=== PATIENT | female | born 1990 | race Caucasian/White ===

== ENCOUNTER 2017-01-13 18:23 | Emergency (ER) | payer SELFPAY ==
[~2017-01-13] VITALS: Ht 162.6 cm; Wt 61.2 kg
[2017-01-13] MEDS ORDERED: NS IV 1000 ML 1,000 ML IV STA (18:36)
[2017-01-13] MEDS ORDERED: FAMOTIDINE 20MG/2ML IV (PEPCID) IV STA (18:36)
[2017-01-13] MEDS ORDERED: KETOROLAC 30 MG/ML VIAL IVP STA (18:36)
[2017-01-13] MEDS ORDERED: ONDANSETRON 4 MG/2 ML (SDV) Z0FRAN IVP ONE (18:45)
[2017-01-13] MEDS ORDERED: HYOSCYAMINE 0.125 MG (LEVSIN) TAB SL ONE (18:45)
[2017-01-13 18:46] LABS: BASOPHILS % (AUTO) 0 % (0-10); EOSINOPHILS % (AUTO) 0 % (0-10); LYMPHOCYTES # (AUTO) 0.8 X 10^3 (1.0-4.0); LYMPHOCYTES % (AUTO) 9 % (12-44); MEAN CORPUSCULAR HEMOGLOBIN 31 PG (25-34); MEAN CORPUSCULAR HGB CONC 35 G/DL (32-36); MEAN CORPUSCULAR VOLUME 90 FL (80-99); MEAN PLATELET VOLUME 10.6 FL (7.4-10.4); MONOCYTES # (AUTO) 0.5 X 10^3 (0.0-1.0); MONOCYTES % (AUTO) 5 % (0-12); NEUTROPHILS # (AUTO) 8.1 X 10^3 (1.8-7.8); NEUTROPHILS % (AUTO) 86 % (42-75); PLATELET COUNT 203 10^3/uL (130-400); RED BLOOD COUNT 4.82 10^6/uL (4.35-5.85); RED CELL DISTRIBUTION WIDTH 12.2 % (10.0-14.5); WHITE BLOOD COUNT 9.5 10^3/uL (4.3-11.0)
--- NOTE | 2017-01-13 19:00 | ED GI ---
General Chief Complaint: Abdominal/GI Problems Stated Complaint: VOMITING,CHILLS Source of Information: Patient Exam Limitations: No Limitations History of Present Illness Time Seen By Provider: 18:32 Initial Comments Here with report of nausea, vomiting and diarrhea since 10 a.m. today. States that she has moderate abdominal cramping with diarrhea and this occurs with each by mouth intake of fluids. Noted that others in her family has similar illnesses this week. She had something similar 3 days ago but got a little better. Denies fever but does report chills. Complains of moderate epigastric burning after trying to take a sip of root beer. Denies blood in her vomit or stool. Timing/Duration: 12 Hours Severity/Quality: Moderate Location: Generalized Abdomen Modifying Factors: Worsens With Eating, Improves With Vomiting Associated Symptoms: No Back Pain, No Chest Pain, No Fever/Chills, Heartburn, Nausea/Vomiting, No Shortness of Air, No Weakness Allergies and Home Medications Allergies Coded Allergies: No Known Drug Allergies (Unverified , 01/13/17) Review of Systems Constitutional: see HPI EENTM: No Symptoms Reported Respiratory: No Symptoms Reported Cardiovascular: No Symptoms Reported Gastrointestinal: See HPI, Abdominal Pain, Diarrhea, Nausea, Vomiting Genitourinary: No Symptoms Reported Musculoskeletal: no symptoms reported Skin: no symptoms reported Psychiatric/Neurological: No Symptoms Reported All Other Systems Reviewed Negative Unless Noted: Yes Past Fenczzp-Aelrnd-Tbxozz Hx Patient Social History Alcohol Use: Occasionally Uses Recreational Drug Use: No Smoking Status: Never a Smoker Recent Foreign Travel: No Contact w/Someone Who Travel: No Surgeries HX Surgeries: Yes Surgeries: Appendectomy, Section, Orthopedic Respiratory Hx Respiratory Disorders: No Cardiovascular Hx Cardiac Disorders: No Neurological Hx Neurological Disorders: No Genitourinary Hx Genitourinary Disorders: No Gastrointestinal Hx Gastrointestinal Disorders: No Musculoskeletal Hx Musculoskeletal Disorders: No Cancer Hx Cancer: No Psychosocial Hx Psychiatric Problems: No Reviewed Nursing Assessment Reviewed/Agree w Nursing PMH: Yes Family Medical History Significant Family History: No Pertinent Family Hx Physical Exam Vital Signs VS - Last 72 Hours, by Label 01/13/17 18:28 Temp 98.2 Pulse 102 Resp 18 B/P (MAP) 113/87 Pulse Ox 97 O2 Delivery Room Air Capillary Refill : General Appearance: WD/WN, no apparent distress HEENT: PERRL/EOMI, pharynx normal Neck: full range of motion, supple Respiratory: lungs clear, normal breath sounds Cardiovascular: regular rate, rhythm, no murmur Peripheral Pulses: 2+ Dorsalis Pedis (R), 2+ Left Dors-Pedis (L), 2+ Radial Pulses (R), 2+ Radial Pulses (L) Gastrointestinal: non tender, soft Extremities: non-tender, normal inspection Back: normal inspection, no CVA tenderness, no vertebral tenderness Neurologic/Psychiatric: alert, oriented x 3 Skin: normal color, warm/dry Progress/Results/Core Measures Results/Orders Lab Results Laboratory Tests Test 01/13/17 18:39 01/13/17 19:21 Range/Units White Blood Count 9.5 4.3-11.0 10^3/uL Red Blood Count 4.82 4.35-5.85 10^6/uL Hemoglobin 15.0 11.5-16.0 G/DL Hematocrit 43 35-52 % Mean Corpuscular Volume 90 80-99 FL Mean Corpuscular Hemoglobin 31 25-34 PG Mean Corpuscular Hemoglobin Concent 35 32-36 G/DL Red Cell Distribution Width 12.2 10.0-14.5 % Platelet Count 203 130-400 10^3/uL Mean Platelet Volume 10.6 H 7.4-10.4 FL Neutrophils (%) (Auto) 86 H 42-75 % Lymphocytes (%) (Auto) 9 L 12-44 % Monocytes (%) (Auto) 5 0-12 % Eosinophils (%) (Auto) 0 0-10 % Basophils (%) (Auto) 0 0-10 % Neutrophils # (Auto) 8.1 H 1.8-7.8 X 10^3 Lymphocytes # (Auto) 0.8 L 1.0-4.0 X 10^3 Monocytes # (Auto) 0.5 0.0-1.0 X 10^3 Eosinophils # (Auto) 0.0 0.0-0.3 10^3/uL Basophils # (Auto) 0.0 0.0-0.1 10^3/uL Sodium Level 137 135-145 MMOL/L Potassium Level 3.9 3.6-5.0 MMOL/L Chloride Level 106 98-107 MMOL/L Carbon Dioxide Level 16 L 21-32 MMOL/L Anion Gap 15 H 5-14 MMOL/L Blood Urea Nitrogen 18 7-18 MG/DL Creatinine 0.72 0.60-1.30 MG/DL Estimat Glomerular Filtration Rate > 60 BUN/Creatinine Ratio 25 Glucose Level 98 70-105 MG/DL Calcium Level 8.9 8.5-10.1 MG/DL Total Bilirubin 1.4 H 0.1-1.0 MG/DL Aspartate Amino Transf (AST/SGOT) 18 5-34 U/L Alanine Aminotransferase (ALT/SGPT) 23 0-55 U/L Alkaline Phosphatase 64 40-136 U/L Total Protein 7.7 6.4-8.2 GM/DL Albumin 4.8 H 3.2-4.5 GM/DL Amylase Level 26 25-125 U/L Lipase 4 L 8-78 U/L Urine Color YELLOW Urine Clarity CLEAR Urine pH 5 5-9 Urine Specific [place] 1.020 1.016-1.022 Urine Protein 1+ H NEGATIVE Urine Glucose (UA) NEGATIVE NEGATIVE Urine Ketones 4+ H NEGATIVE Urine Nitrite NEGATIVE NEGATIVE Urine Bilirubin NEGATIVE NEGATIVE Urine Urobilinogen NORMAL NORMAL MG/DL Urine Leukocyte Esterase 1+ H NEGATIVE Urine RBC (Auto) 2+ H NEGATIVE Urine RBC NONE /HPF Urine WBC 10-25 H /HPF Urine Squamous Epithelial Cells 5-10 /HPF Urine Crystals NONE /LPF Urine Bacteria FEW H /HPF Urine Casts NONE /LPF Urine Mucus LARGE H /LPF Urine Culture Indicated YES My Orders Orders - ROJELIO SALINAS MD Ondansetron Injection (Zofran Injectio (01/13/17 18:45) Ns Iv 1000 Ml (Sodium Chloride 0.9%) (01/13/17 18:36) Famotidine Injection (Pepcid Injection) (01/13/17 18:36) Hyoscyamine Sl Tablet (Levsin Sl Tablet) (01/13/17 18:45) Saline Lock/Iv-Start (01/13/17 18:36) Ketorolac Injection (Toradol Injection) (01/13/17 18:36) Amylase (01/13/17 18:36) Cbc With Automated Diff (01/13/17 18:36) Comprehensive Metabolic Panel (01/13/17 18:36) Lipase (01/13/17 18:36) Urine Bedside (01/13/17 19:04) Ua Culture If Indicated (01/13/17 19:04) Urine Culture (01/13/17 19:21) Ns Iv 1000 Ml (Sodium Chloride 0.9%) (01/13/17 19:49) Medications Given in ED Current Medications Medications Dose Ordered Sig/[place] Route Start Time Stop Time Status Last Admin Dose Admin Hyoscyamine Sulfate 0.125 mg ONCE ONCE SL 01/13/17 18:45 01/13/17 18:46 DC 01/13/17 18:47 0.125 MG Ondansetron HCl 4 mg ONCE ONCE IVP 01/13/17 18:45 01/13/17 18:46 DC 01/13/17 18:48 4 MG Sodium Chloride 1,000 ml @ 0 mls/hr Q0M ONCE IV 01/13/17 19:49 01/13/17 19:50 DC 01/13/17 20:04 0 MLS/HR Vital Signs/I&O Vital Sign - Last 12Hours 01/13/17 18:28 Temp 98.2 Pulse 102 Resp 18 B/P (MAP) 113/87 Pulse Ox 97 O2 Delivery Room Air Progress Note : Progress Note Seen and evaluated. IV, labs, UA, normal saline 1 L bolus, Zofran 4 mg IV, Toradol 30 mg IV, Levsin 0.125 mg by mouth and Pepcid 20 mg IV ordered. Monitor patient. 2119: Second liter of IV fluid given the patient feeling much better. She states she is hungry would like to go home. Labs and UA reviewed with her. Discharged home with return precautions. Patient verbalize understanding instructions and agreement with plan. Departure Impression Impression: Primary Impression: Nausea and vomiting Qualified Codes: R11.2 - Nausea with vomiting, unspecified Additional Impressions: Dehydration Diarrhea Qualified Codes: R19.7 - Diarrhea, unspecified Disposition: 01 HOME, SELF-CARE Condition: Stable (I will order as patient's chart) Departure-Patient Inst. Decision time for Depature: 21:25 Referrals: NO,LOCAL PHYSICIAN (PCP/Family) Primary Care Physician Patient Instructions: Dehydration, Adult (DC), Diarrhea in Adolescents and Adults, Nausea and Vomiting, Adult (DC) Add. Discharge Instructions: All discharge instructions reviewed with patient and/or family. Voiced understanding. Clear liquid diet for the next 12-24 hours and then advance as tolerated. Follow-up with your DrKwaku in a few days for recheck. Return for worsening, fever , vomiting, weakness, breathing problems or other concerns as needed. You may take Pepcid 20 mg twice daily for the next 3-4 days and then as needed for stomach upset. Work/School Note: [employer] ROJELIO SALINAS MD Jan 13, 2017 19:00
[2017-01-13 19:14] LABS: ALANINE AMINOTRANSFERASE 23 U/L (0-55); ALBUMIN 4.8 GM/DL (3.2-4.5); AMYLASE 26 U/L (25-125); ANION GAP 15 MMOL/L (5-14); ASPARTATE AMINO TRANSFERASE 18 U/L (5-34); BILIRUBIN,TOTAL 1.4 MG/DL (0.1-1.0); BLOOD UREA NITROGEN 18 MG/DL (7-18); BUN/CREATININE RATIO 25; CALCIUM 8.9 MG/DL (8.5-10.1); CARBON DIOXIDE 16 MMOL/L (21-32); CHLORIDE 106 MMOL/L (98-107); CREATININE SERUM 0.72 MG/DL (0.60-1.30); GFR ESTIMATED > 60; GLUCOSE 98 MG/DL (70-105); LIPASE 4 U/L (8-78); POTASSIUM 3.9 MMOL/L (3.6-5.0); SODIUM 137 MMOL/L (135-145); TOTAL PROTEIN 7.7 GM/DL (6.4-8.2)
[2017-01-13 19:33] LABS: BILIRUBIN,URINE NEGATIVE (NEGATIVE); KETONES,URINE 4+ (NEGATIVE); LEUKOCYTE ESTERASE ,URINE 1+ (NEGATIVE); NITRITE,URINE NEGATIVE (NEGATIVE); PH,URINE 5 (5-9); PROTEIN,URINE 1+ (NEGATIVE); UROBILINOGEN,URINE NORMAL (NORMAL)
[2017-01-13] MEDS ORDERED: NS IV 1000 ML 1,000 ML IV ONE (19:49)
[2017-01-13] MEDS ORDERED: RX-ONDANSETRON 4 MG ODT (ZOFRAN) PPK #4 ONE (21:21)
[2017-01-13] MEDS ORDERED: RX-ONDANSETRON 4 MG ODT (ZOFRAN) PPK #4 PO STA (21:27)
[2017-01-13 21:40] VITALS: BP 103/65
== END 2017-01-13 21:38 | disposition home or self-care (01) ==
LOC: ER 18:27
DX: R11.2 Nausea with vomiting, unspecified (principal); R19.7 Diarrhea, unspecified; E86.0 Dehydration; Z90.49 Acquired absence of other specified parts of digestive tract
CPT/HCPCS: 36415; 80053; 81000; 82150; 83690; 85025; 87088; 96361; 96374; 96375

== ENCOUNTER → 2017-04-25 | Outpatient (CLI) | payer MEDICAID ==
--- NOTE | 2017-04-25 10:38 | Diagnostic Imaging Report ---
First trimester OB ultrasound. INDICATION: Vaginal bleeding. FINDINGS: There is a normal-appearing single intrauterine . An embryo is seen with cardiac activity at 113 beats per minute. The crown-rump length is at 6 weeks and zero days. BAILEE is 12/19/17. There is subchorionic hemorrhage measuring 1 x 1 x 0.3 CM along the left side the of the gestational sac. There is suggestion of a corpus luteum cyst measuring 2.2 CM in the right ovary. The left ovary appears unremarkable. IMPRESSION: Live single intrauterine . Tiny subchorionic hemorrhage. Dictated by: Dictated on workstation # [id number]
== END ==
LOC: RAD 09:12
PROVIDERS: ATTEND Family Medicine
DX: O20.0 Threatened abortion (principal); Z3A.00 Weeks of gestation of pregnancy not specified
CPT/HCPCS: 36415; 76801; 76817; 84702

== ENCOUNTER → 2017-08-21 | Outpatient (CLI) | payer MEDICAID ==
--- NOTE | 2017-08-21 18:06 | Diagnostic Imaging Report ---
INDICATION: survey. TECHNIQUE: Multiple real-time grayscale images were obtained over the gravid uterus. COMPARISON: 04/25/2017. FINDINGS: Single live intrauterine fetus is seen measuring at 23 weeks 5 days in size, this is about 6 days larger than expected from original dates. Fetus is in breech presentation at this time. The amniotic fluid appears qualitatively normal. Placenta is posterior and grade 2 with no evidence of previa. The heart rate was 156 beats per minute. Cervical length was 4.2 cm. survey including kidneys, bladder, stomach, brain and intracranial ventricles, four-chamber heart, three-vessel cord, spine, and cord insertion all appeared unremarkable. Biometrical measurements are as follows: Biparietal 5.59 cm, age 23 weeks 1 days. Head circumference 21.54 cm, age 23 weeks 5 days. Abdominal circumference 19.76 cm, age 24 weeks 3 days. Femur length 4.05 cm, age 23 weeks 1 days. Sonographic estimate age: 23 weeks 5 days. Sonographic estimated date of delivery: 12/13/2017. Estimated Weight: 629 gm (+/- 92 gm). LMP percentile: 86%. heart rate: 156 beats per minute. number: 1 of 1. IMPRESSION: Single live intrauterine fetus measuring 23 weeks 5 days in size, this is about 6 days larger than expected from original dates but may be within variation of late . Continued followup is suggested, as clinically warranted. The fetus is in breech presentation. survey was unremarkable. Dictated by: Dictated on workstation # [id number]
== END ==
LOC: RAD 15:39
PROVIDERS: ATTEND Family Medicine
DX: Z34.92 Encounter for supervision of normal pregnancy, unspecified, second trimester (principal); Z3A.23 23 weeks gestation of pregnancy
CPT/HCPCS: 76805

== ENCOUNTER 2017-10-01 19:42 | Outpatient (CLI) | payer SELFPAY ==
--- NOTE | 2017-10-03 09:56 | Physician Query-Final Dx ---
NICOLE HUMPHREYS 10/03/17 0956: Clinic Account Progress/Dx Physician Query: Please give diagnosis Date of Service Oct 01, 2017 at 19:42 RAYA JIMÉNEZ DO 10/04/17 1147: Clinic Account Progress/Dx DIAGNOSIS: Diagnosis 28 week GA Reactive NST - patient seen and evaluated in the ER NICOLE HUMPHREYS Oct 03, 2017 09:56 RAYA JIMÉNEZ DO Oct 04, 2017 11:47
== END 2017-10-01 19:50 | disposition designated cancer center or children's hospital (05) ==
LOC: WSo 19:42 → LDRP 19:42 → WSo 19:50
PROVIDERS: ATTEND Family Medicine
DX: O99.353 Diseases of the nervous system complicating pregnancy, third trimester (principal); R47.9 Unspecified speech disturbances; R20.2 Paresthesia of skin; Z3A.28 28 weeks gestation of pregnancy
CPT/HCPCS: 99212

== ENCOUNTER 2017-10-01 19:57 | Emergency (ER) | payer SELFPAY ==
[~2017-10-01] VITALS: Ht 162.6 cm; Wt 70.3 kg
--- OUTSIDE RECORDS SUMMARY | 2017-10-01 20:02 | XMS REPORT | Clinical Summary ---
Author Author [facility] Organization [facility] Address Unknown Phone Unavailable Care Team Providers Care Psychology Technician Name Role Phone Katarzyna Ahn RN Unavailable Unavailable Jermain Kunz MD Unavailable Jamia Colvin RN Unavailable Unavailable Nuria Chiu MD PCP Nuria Chiu MD 100 Source Comments Some departments are not documenting in the electronic medical record. If you do not see the information that you expected, contact Release of Information in the Health Information Management department at [phone] for further assistance in locating additional records.[facility] Allergies No Known Allergies Current Medications Prescription Sig. Disp. Refills Start End Date Status Date ibuprofen (MOTRIN) 600 mg Take 1 Tab by mouth every 30 Tab 0 10/10/19 Active tablet 6 hours as needed for 17 Pain. Take with food. Active Problems Problem Noted Date Encounter for insertion of intrauterine contraceptive device 04/28/2016 Overview: 04/26/2016: Mirena inserted today. Single, sexually active. Has a 3 yo son. Recent PAP was ok, but tested positive for chlamydia. Was treated. Partner treated as well. - POC URINE neg - Mirena insertec - Ordered CHLAM/NG PCR SWAB; Future; Expected date: 04/26/16 Screen for STD (sexually transmitted disease) 04/28/2016 Overview: 04/26/2016: Recent + test for chlaymdia. Pt and partner treated. Repeat ordered, since getting an IUD placed today. Immunizations Name Dates Previously Given Next Due FLU VACCINE >3YO 05/10/2011 Family History Medical History Relation Name Comments Alcohol abuse Father Alcohol abuse Maternal Grandfather Diabetes Maternal Grandfather Drug Abuse Maternal Grandfather Kidney Disease Maternal Grandfather Alcohol abuse Maternal Grandmother Diabetes Maternal Grandmother Heart Disease Maternal Grandmother High Cholesterol Maternal Grandmother Alcohol abuse Mother Cancer Paternal Grandmother Diabetes Paternal Grandmother Relation Name Status Comments Father Maternal Grandfather Maternal Grandmother Mother Paternal Grandmother Social History Tobacco Use Types Packs/Day Years Used Date Current Some Day Smoker 0.03 Smokeless Tobacco: Never Used Tobacco Cessation: Ready to Quit: Yes; Counseling Given: Yes Alcohol Use Drinks/Week oz/Week Comments Yes 0 Standard 0.0 drinks or equivalent Sex Assigned at Date Recorded Not on file Last Filed Vital Signs Vital Sign Reading Time Taken Blood Pressure 114/60 10/09/2016 12:46 PM CDT Pulse 85 06/10/2016 2:21 PM [employer] Temperature 36.8 C (98.3 F) 10/09/2016 11:40 AM CDT Respiratory Rate 16 06/10/2016 2:21 PM [employer] Oxygen Saturation 100% 10/09/2016 12:48 PM CDT Inhaled Oxygen - - Concentration Weight 64.4 kg (141 lb 14.4 oz) 06/10/2016 2:21 PM [employer] Height 162.6 cm (5' 4.02") 06/10/2016 2:21 PM [employer] Body Mass Index 24.34 06/10/2016 2:21 PM [employer] Plan of Treatment Health Maintenance Due Date Last Done Comments HPV VACCINES (1 of 3 - 08/29/2003 Female 3 Dose Series) PERTUSSIS VACCINE 08/29/2003 TETANUS VACCINE 2009 PHYSICAL (COMPREHENSIVE) 03/15/2017 03/15/2016, 08/25/2011 EXAM INFLUENZA VACCINE 03/26/2018 05/10/2011 CERVICAL CANCER SCREENING 03/15/2019 03/15/2016, 03/15/2016 HIV SCREENING Completed 03/16/2016, 08/25/2011 Results Not on filefrom Last 3 Months
[2017-10-01 20:15] LABS: BASOPHILS % (AUTO) 0 % (0-10); EOSINOPHILS # (AUTO) 0.4 10^3/uL (0.0-0.3); EOSINOPHILS % (AUTO) 4 % (0-10); HEMATOCRIT 37 % (35-52); HEMOGLOBIN 12.9 G/DL (11.5-16.0); LYMPHOCYTES # (AUTO) 2.4 X 10^3 (1.0-4.0); LYMPHOCYTES % (AUTO) 25 % (12-44); MEAN CORPUSCULAR HEMOGLOBIN 31 PG (25-34); MEAN CORPUSCULAR HGB CONC 35 G/DL (32-36); MEAN CORPUSCULAR VOLUME 90 FL (80-99); MEAN PLATELET VOLUME 10.5 FL (7.4-10.4); MONOCYTES # (AUTO) 0.7 X 10^3 (0.0-1.0); MONOCYTES % (AUTO) 8 % (0-12); NEUTROPHILS # (AUTO) 5.9 X 10^3 (1.8-7.8); NEUTROPHILS % (AUTO) 63 % (42-75); PLATELET COUNT 210 10^3/uL (130-400); RED BLOOD COUNT 4.11 10^6/uL (4.35-5.85); RED CELL DISTRIBUTION WIDTH 12.8 % (10.0-14.5); WHITE BLOOD COUNT 9.4 10^3/uL (4.3-11.0)
[2017-10-01 20:17] LABS: BILIRUBIN,URINE NEGATIVE (NEGATIVE); CLARITY,URINE CLEAR; COLOR,URINE YELLOW; GLUCOSE, URINE (UA) NEGATIVE (NEGATIVE); KETONES,URINE NEGATIVE (NEGATIVE); LEUKOCYTE ESTERASE ,URINE NEGATIVE (NEGATIVE); NITRITE,URINE NEGATIVE (NEGATIVE); PH,URINE 7 (5-9); PROTEIN,URINE NEGATIVE (NEGATIVE); UROBILINOGEN,URINE NORMAL (NORMAL)
[2017-10-01 20:20] LABS: PROTHROMBIN TIME PATIENT 12.9 SEC (12.2-14.7)
[2017-10-01 20:30] LABS: ALANINE AMINOTRANSFERASE 13 U/L (0-55); ALBUMIN 3.8 GM/DL (3.2-4.5); ALKALINE PHOSPHATASE 79 U/L (40-136); BILIRUBIN,TOTAL 0.4 MG/DL (0.1-1.0); BUN/CREATININE RATIO 7; CARBON DIOXIDE 21 MMOL/L (21-32); CHLORIDE 108 MMOL/L (98-107); CREATININE SERUM 0.59 MG/DL (0.60-1.30); GFR ESTIMATED > 60; GLUCOSE 94 MG/DL (70-105); MAGNESIUM 1.8 MG/DL (1.8-2.4); POTASSIUM 3.7 MMOL/L (3.6-5.0); SODIUM 140 MMOL/L (135-145); TOTAL PROTEIN 6.5 GM/DL (6.4-8.2)
[2017-10-01 20:31] LABS: BACTERIA,URINE NEGATIVE /HPF; SQUAMOUS EPITHELIAL CELL,UR 0-2 /HPF; WBC,URINE 0-2 /HPF
[2017-10-01 20:37] LABS: AMPHETAMINE SCREEN, URINE NEGATIVE (NEGATIVE); BARBITURATE SCREEN URINE NEGATIVE (NEGATIVE); BENZODIAZEPINES SCREEN URINE NEGATIVE (NEGATIVE); CANNABINOID SCREEN, URINE NEGATIVE (NEGATIVE); COCAINE SCREEN URINE NEGATIVE (NEGATIVE); METHADONE STAT NEGATIVE (NEGATIVE); METHAMPHETAMINE SCREEN URINE S NEGATIVE (NEGATIVE); OPIATE SCREEN URINE NEGATIVE (NEGATIVE); OXYCODONE STAT NEGATIVE (NEGATIVE); PROPOXYPHENE STAT NEGATIVE (NEGATIVE); TRICYCLIC ANTIDEPRESSANTS SCRE NEGATIVE (NEGATIVE)
--- NOTE | 2017-10-01 20:49 | Diagnostic Imaging Report ---
CT HEAD WO-R/O STROKE Technique: Unenhanced CT imaging of the head was performed. Indication: Right-sided numbness and tingling. Comparison: None available. Findings: No hyperdense hemorrhage or space-occupying mass. No hydrocephalus or midline shift. No evidence of acute large territorial infarct by CT. Basilar cisterns are patent. Paranasal sinuses and mastoid air cells are clear. Orbits are unremarkable. Impression: 1. No acute intracranial hemorrhage or evidence of acute territorial infarct. Dictated by: Dictated on workstation # [id number]
[2017-10-01 20:50] LABS: TSH (THYROID ANALYZER) 1.84 UIU/ML (0.35-4.94)
--- NOTE | 2017-10-01 21:18 | ED General ---
General Chief Complaint: -Female Stated Complaint: RIGHT SIDE WEAKNESS/CONFUSION 31 WKS PRE Nursing Triage Note: Pt. presented to the ER from the OB unit with complaints of hypertension and neurological changes. Upon arrival to the department the patient was A&O x 3. Pt. advises when her symptoms initially began that she experienced right leg, right fingers, tongue and right sided facial numbness. She advises numbness and tingling has since subsided. Nursing Sepsis Screen: No Definite Risk Allergies and Home Medications Allergies Coded Allergies: No Known Drug Allergies (Unverified , 01/13/17) Review of Systems Expected Date of Delivery: Dec 21, 2017 Past Vscjfbk-Xgguwy-Rlqmht Hx Patient Social History Alcohol Use: Denies Use Recreational Drug Use: No Smoking Status: Never a Smoker Recent Foreign Travel: No Contact w/Someone Who Travel: No Recent Infectious Disease Expo: No Recent Hopitalizations: No Physical Abuse: No Sexual Abuse: No Seasonal Allergies Seasonal Allergies: No Past Medical History Surgeries: Yes Appendectomy, Section, Orthopedic Respiratory: No Cardiac: No Neurological: No : Yes (28 wks) Expected Date of Delivery: Dec 21, 2017 Last Menstrual Period: Mar 16, 2017 Hx : 2 Hx Para: 1 Hx Total # of Abortions (Sp): 1 Genitourinary: No Gastrointestinal: No Musculoskeletal: No Endocrine: No HEENT: No Cancer: No Psychosocial: No Nursing Suicide Risk Score: 0 Family Medical History No Pertinent Family Hx Physical Exam Vital Signs Vital Signs - First Documented 10/01/17 20:10 Temp 98.7 Pulse 79 Resp 14 B/P (MAP) 103/64 (77) Pulse Ox 98 O2 Delivery Room Air Capillary Refill : Less Than 3 Seconds Progress/Results/Core Measures Suspected Sepsis Recent Fever Within 48 Hours: No Infection Criteria Present: None New/Unexplained Altered Menta: No Sepsis Screen: No Definite Risk Sepsis Diagnosis: SIRS Temperature:98.7 Pulse: 79 Respiratory Rate: 14 Laboratory Tests 10/01/17 19:59: White Blood Count 9.4 Blood Pressure 103 /64 Mean: 77 Laboratory Tests 10/01/17 19:59: Creatinine 0.59L, INR Comment 1.0, Platelet Count 210, Total Bilirubin 0.4 Results/Orders Lab Results Laboratory Tests Test 10/01/17 19:59 10/01/17 20:13 Range/Units White Blood Count 9.4 4.3-11.0 10^3/uL Red Blood Count 4.11 L 4.35-5.85 10^6/uL Hemoglobin 12.9 11.5-16.0 G/DL Hematocrit 37 35-52 % Mean Corpuscular Volume 90 80-99 FL Mean Corpuscular Hemoglobin 31 25-34 PG Mean Corpuscular Hemoglobin Concent 35 32-36 G/DL Red Cell Distribution Width 12.8 10.0-14.5 % Platelet Count 210 130-400 10^3/uL Mean Platelet Volume 10.5 H 7.4-10.4 FL Neutrophils (%) (Auto) 63 42-75 % Lymphocytes (%) (Auto) 25 12-44 % Monocytes (%) (Auto) 8 0-12 % Eosinophils (%) (Auto) 4 0-10 % Basophils (%) (Auto) 0 0-10 % Neutrophils # (Auto) 5.9 1.8-7.8 X 10^3 Lymphocytes # (Auto) 2.4 1.0-4.0 X 10^3 Monocytes # (Auto) 0.7 0.0-1.0 X 10^3 Eosinophils # (Auto) 0.4 H 0.0-0.3 10^3/uL Basophils # (Auto) 0.0 0.0-0.1 10^3/uL Prothrombin Time 12.9 12.2-14.7 SEC INR Comment 1.0 0.8-1.4 Activated Partial Thromboplast Time 25 24-35 SEC Sodium Level 140 135-145 MMOL/L Potassium Level 3.7 3.6-5.0 MMOL/L Chloride Level 108 H 98-107 MMOL/L Carbon Dioxide Level 21 21-32 MMOL/L Anion Gap 11 5-14 MMOL/L Blood Urea Nitrogen 4 L 7-18 MG/DL Creatinine 0.59 L 0.60-1.30 MG/DL Estimat Glomerular Filtration Rate > 60 BUN/Creatinine Ratio 7 Glucose Level 94 70-105 MG/DL Calcium Level 9.0 8.5-10.1 MG/DL Magnesium Level 1.8 1.8-2.4 MG/DL Total Bilirubin 0.4 0.1-1.0 MG/DL Aspartate Amino Transf (AST/SGOT) 16 5-34 U/L Alanine Aminotransferase (ALT/SGPT) 13 0-55 U/L Alkaline Phosphatase 79 40-136 U/L Troponin I < 0.30 <0.30 NG/ML Total Protein 6.5 6.4-8.2 GM/DL Albumin 3.8 3.2-4.5 GM/DL TSH [place] Testing 1.84 0.35-4.94 UIU/ML Serum Alcohol < 10 <10 MG/DL Urine Color YELLOW Urine Clarity CLEAR Urine pH 7 5-9 Urine Specific [place] 1.005 L 1.016-1.022 Urine Protein NEGATIVE NEGATIVE Urine Glucose (UA) NEGATIVE NEGATIVE Urine Ketones NEGATIVE NEGATIVE Urine Nitrite NEGATIVE NEGATIVE Urine Bilirubin NEGATIVE NEGATIVE Urine Urobilinogen NORMAL NORMAL MG/DL Urine Leukocyte Esterase NEGATIVE NEGATIVE Urine RBC (Auto) NEGATIVE NEGATIVE Urine RBC NONE /HPF Urine WBC 0-2 /HPF Urine Squamous Epithelial Cells 0-2 /HPF Urine Renal Epithelial Cells NONE /HPF Urine Crystals NONE /LPF Urine Bacteria NEGATIVE /HPF Urine Casts NONE /LPF Urine Mucus NEGATIVE /LPF Urine Culture Indicated NO Urine Opiates Screen NEGATIVE NEGATIVE Urine Oxycodone Screen NEGATIVE NEGATIVE Urine Methadone Screen NEGATIVE NEGATIVE Urine Propoxyphene Screen NEGATIVE NEGATIVE Urine Barbiturates Screen NEGATIVE NEGATIVE Ur Tricyclic Antidepressants Screen NEGATIVE NEGATIVE Urine Phencyclidine Screen NEGATIVE NEGATIVE Urine Amphetamines Screen NEGATIVE NEGATIVE Urine Methamphetamines Screen NEGATIVE NEGATIVE Urine Benzodiazepines Screen NEGATIVE NEGATIVE Urine Cocaine Screen NEGATIVE NEGATIVE Urine Cannabinoids Screen NEGATIVE NEGATIVE My Orders Orders - JORGE MEZA DO Saline Lock/Iv-Start (10/01/17 20:06) Ekg Tracing (10/01/17 20:06) Monitor-Rhythm Ecg Trace Only (10/01/17 20:06) Ct Head Wo-R/O Stroke (10/01/17 20:06) Alcohol (10/01/17 20:06) Cbc With Automated Diff (10/01/17 20:06) Comprehensive Metabolic Panel (10/01/17 20:06) Drug Screen Stat (Urine) (10/01/17 20:06) Magnesium (10/01/17 20:06) Protime With Inr (10/01/17 20:06) Partial Thromboplastin Time (10/01/17 20:06) Thyroid Analyzer (10/01/17 20:06) Troponin I (10/01/17 20:06) Ua Culture If Indicated (10/01/17 20:06) Monitor (10/01/17 20:06) Vital Signs/I&O 10/01/17 20:10 Temp 98.7 Pulse 79 Resp 14 B/P (MAP) 103/64 (77) Pulse Ox 98 O2 Delivery Room Air Capillary Refill : Less Than 3 Seconds Blood Pressure Mean: 77 Departure Impression Primary Impression: TRANSIENT PARESTHESIAS Additional Impressions: Transient speech disturbance 26 weeks gestation of Disposition: HOME, SELF-CARE Condition: Improved Departure-Patient Inst. Referrals: DAVID GUIDO MD (PCP/Family) Primary Care Physician Patient Instructions: Paresthesias (DC) Add. Discharge Instructions: HOME, REST EATING/DRINKING USUAL FOLLOW UP WITH YOUR OB DR. IN 1-2 DAYS FOR FURTHER CARE RETURN TO ER IF SYMPTOMS WORSEN All discharge instructions reviewed with patient and/or family. Voiced understanding. JORGE MEZA DO Oct 01, 2017 21:18
[2017-10-01 21:59] VITALS: BP 94/67
== END 2017-10-01 21:45 | disposition home or self-care (01) ==
LOC: EDUNIT# 19:57 → ER 19:58
DX: O99.353 Diseases of the nervous system complicating pregnancy, third trimester (principal); R47.9 Unspecified speech disturbances; R20.2 Paresthesia of skin; Z3A.31 31 weeks gestation of pregnancy; Z90.49 Acquired absence of other specified parts of digestive tract; Z87.59 Personal history of other complications of pregnancy, childbirth and the puerperium
CPT/HCPCS: 36415; 70450; 80053; 80306; 80320; 81000; 83735; 84443; 84484; 85025; 85610; 85730; 93005; 93041

== ENCOUNTER 2017-11-30 10:02 | Inpatient (IN) | payer SELFPAY ==
[~2017-11-30] VITALS: Ht 162.6 cm; Wt 76.7 kg
[2017-11-30 10:10] VITALS: BP 128/70
[2017-11-30] MEDS ORDERED: FAMOTIDINE 20MG/2ML IV (PEPCID) IV ONE (13:00)
[2017-11-30] MEDS ORDERED: CITRIC ACID/SOB CIT (BICITRA) 30 ML UDC PO ONE (13:00)
[2017-11-30] MEDS ORDERED: ceFAZolin 2 GM IV Premixed 50 ML IV ONE (13:00)
[2017-11-30] MEDS ORDERED: METOCLOPRAMIDE INJ 10 MG/2 ML (REGLAN) IV ONE (13:00)
[2017-11-30] MEDS ORDERED: raNItidine INJECTION 50 MG in NS (IVPB) 50 ML IV ONE (13:00)
--- NOTE | 2017-11-30 13:01 | History & Physical-OB/GYN ---
History of Present Illness History of Present Illness Reason for visit/HPI spotting in third trimester of (37 + weeks) Margaux regularly Large deceleration (good recovery) Previous section Date of Admission 11/30/17 Date Seen by Provider: Nov 30, 2017 Time Seen by Provider: 13:10 I consulted on this patient on 11/30/17 12:56 Attending Physician Miranda Cox MD Admitting Physician Miranda Cox MD Consult Allergies and Home Medications Allergies Coded Allergies: No Known Drug Allergies (Unverified , 01/13/17) Patient Home Medication List Home Medication List Reviewed: Yes Past Cpsavkg-Cqqadv-Gxttlh Hx Patient Social History Smoking Status: Never a Smoker Type Used: Cigarettes Physical Abuse Screen: No Sexual Abuse: No Recent Foreign Travel: No Contact w/other who traveled: No Recent Hopitalizations: No Recent Infectious Disease Expo: No Seasonal Allergies Seasonal Allergies: No Surgeries Yes Appendectomy, Section, Orthopedic, Tonsillectomy Respiratory No Cardiovascular No Neurological No Reproductive System Expected Date of Delivery: Dec 19, 2017 Hx : 2 Hx Para: 1 Hx Reproductive Disorders: No Genitourinary No Gastrointestinal No Musculoskeletal No Endocrine History of Endocrine Disorders: No HEENT History of HEENT Disorders: No Cancer No Psychosocial History of Psychiatric Problem: Yes Behavioral Health Disorders: Anxiety Family Medical History Significant Family History: No Pertinent Family Hx Constitutional: no symptoms reported Physical Exam Physical Exam Vital Signs Capillary Refill : Laboratory Tests Test 11/30/17 13:32 Range/Units White Blood Count 11.7 H 4.3-11.0 10^3/uL Red Blood Count 4.39 4.35-5.85 10^6/uL Hemoglobin 13.3 11.5-16.0 G/DL Hematocrit 39 35-52 % Mean Corpuscular Volume 88 80-99 FL Mean Corpuscular Hemoglobin 30 25-34 PG Mean Corpuscular Hemoglobin Concent 35 32-36 G/DL Red Cell Distribution Width 13.5 10.0-14.5 % Platelet Count 206 130-400 10^3/uL Mean Platelet Volume 11.8 H 7.4-10.4 FL Neutrophils (%) (Auto) 78 H 42-75 % Lymphocytes (%) (Auto) 16 12-44 % Monocytes (%) (Auto) 6 0-12 % Eosinophils (%) (Auto) 1 0-10 % Basophils (%) (Auto) 0 0-10 % Neutrophils # (Auto) 9.1 H 1.8-7.8 X 10^3 Lymphocytes # (Auto) 1.9 1.0-4.0 X 10^3 Monocytes # (Auto) 0.7 0.0-1.0 X 10^3 Eosinophils # (Auto) 0.1 0.0-0.3 10^3/uL Basophils # (Auto) 0.0 0.0-0.1 10^3/uL Labs See RN notes for vitals Respiratory: Lungs Clear, Normal Breath Sounds Cardiovascular: Regular Rate, Rhythm Abdominal: normal bowel sounds, non tender Assessment/Plan Assessment and Plan 27 year old at 37 weeks with history of previous section in labor Plan repeat section at this time Risk infection, injury to bowel bladder ureter, bleeding with risk of transfusion. Ancef 2 gm and SCDs prophylactically. Consents signed. [facility]. Admission Diagnosis Admission Status: Inpatient Order (span 2 midnights) Reason for Inpatient Admission: surgery CELIO ORTEGA DO Nov 30, 2017 13:01
--- OUTSIDE RECORDS SUMMARY | 2017-11-30 13:31 | XMS REPORT ---
Author Author DAVID GUIDO Organization [facility] Address [address] [place] [address] Care Team Providers Care Hardware Designer Name Role Phone DAVID GUIDO Unavailable PROBLEMS Type Condition ICD9-CM Code VOX27-JW Code Onset Dates Condition Status SNOMED Code Problem Previous section complicating O34.219 Active 345909960 Problem Anxiety F41.9 Active 88167858 Problem Substance abuse F19.10 Active 75012168 ALLERGIES No Known Allergies ENCOUNTERS Encounter Location Date Diagnosis [facility] [address] [address] Sep, [facility] [id number] [place] [address] 47298- 7927 Sep, [facility] [id number] [place] [address] 57805 -5998 Aug, Sore throat J02.9 and Acute nasopharyngitis J00 [facility] [id number] [place] [address] 53436- 1846 13 Aug, 2017 Second trimester Z34.92 ; Previous section complicating O34.219 and 24 weeks gestation of Z3A.24 [facility] [id number] [place] [address] 59928- 5458 07 Jul, 2017 First trimester Z34.90 ; 19 weeks gestation of Z3A.19 and History of section Z98.891 [place] [address] [address]- 7299 10 Jun, 2017 Second trimester Z34.92 and 15 weeks gestation of Z3A.15 [place] [address] 61516- 7916 Jun, [facility] [address] [place] [address] 68567- 7241 May, First trimester Z34.90 and 11 weeks gestation of Z3A.11 [facility] [id number] [place] [address] 52884- 6409 14 Apr, 2017 [facility] [id number] [place] [address] 04135- 0729 Apr, Normal in multigravida Z34.80 ; First trimester Z34.90 ; UTI (urinary tract infection) in in first trimester O23.41 ; 7 weeks gestation of Z3A.01 and Previous section complicating O34.219 [place] [id number] [place] [address] 28954- 8672 Apr, [place] [address] 8[address]- 3437 Mar, Threatened miscarriage in early O20.0 [place] [id number] [place] [address] 25492- 5769 Mar, Anxiety F41.9 and Substance abuse F19.10 [facility] [id number] [place] [address] 81358 -0958 Mar, Dysuria R30.0 and Vaginal candidiasis B37.3 [facility] [id number] [place] [address] 38313- 3931 Mar, [facility] [id number] [place] [address] 93706- 5169 Mar, [facility] [address] 64068- 2860 Mar, Encounter for test Z32.00 [facility] [id number] [place] [address] 77094- 5377 Mar, [facility] [address] 42676- 4177 Mar, Anxiety F41.9 and Substance abuse F19.10 [facility] [address] [place] [address] 28 Feb, 2017 Encounter for examination and observation for unspecified reason Z04.9 [facility] [address] [place] [address] Feb, [facility] [address] [place] [address] 33869- 5647 Feb, [place] [id number] [place] [address] 46549- 5276 14 Feb, 2017 Anxiety F41.9 and Substance abuse F19.10 [place] [id number] [place] [address] 42444- 3875 Jan, Left breast mass N63 ; Encounter for IUD removal Z30.432 and control counseling Z30.09 [place] [address] [place] [address] 40385- 3213 Jan, IMMUNIZATIONS No Known Immunizations SOCIAL HISTORY Never Assessed REASON FOR VISIT [facility] Updated PLAN OF CARE VITAL SIGNS MEDICATIONS Medication Instructions Dosage Frequency Start Date End Date Duration Status Mirena (52 MG) 20 MCG/24HR Active RESULTS No Results PROCEDURES No Known procedures INSTRUCTIONS MEDICATIONS ADMINISTERED No Known Medications MEDICAL (GENERAL) HISTORY Type Description Date Surgical History section 2012 Surgical History orthopedic surgery-right hand ring finger Surgical History appendectomy Hospitalization History childbirth only
--- OUTSIDE RECORDS SUMMARY | 2017-11-30 13:31 | XMS REPORT | Clinical Summary ---
Author Author [facility] Organization [facility] Address Unknown Phone Unavailable Care Team Providers Care Electronics Technician Name Role Phone Katarzyna Ahn RN Unavailable Unavailable Jermain Kunz MD Unavailable Jamia Colvin RN Unavailable Unavailable Nuria Chiu MD PCP Nuria Chiu MD 100 Source Comments Some departments are not documenting in the electronic medical record. If you do not see the information that you expected, contact Release of Information in the Health Information Management department at [phone] for further assistance in locating additional records.[facility] Allergies No Known Allergies Current Medications Prescription [...] PM CDT Pulse 85 06/10/2016 2:21 PM [employer] Temperature 36.8 C (98.3 F) 10/09/2016 11:40 AM CDT Respiratory Rate 16 06/10/2016 2:21 PM [employer] Oxygen Saturation 100% 10/09/2016 12:48 PM CDT Inhaled Oxygen - - Concentration Weight 64.4 kg (141 lb 14.4 oz) 06/10/2016 2:21 PM [employer] Height 162.6 cm (5' 4.02") 06/10/2016 2:21 PM [employer] Body Mass Index 24.34 06/10/2016 2:21 PM [employer] Plan of Treatment Health Maintenance Due Date Last Done Comments HPV VACCINES (1 of 3 - 08/29/2003 Female 3 Dose Series) PERTUSSIS VACCINE 08/29/2003 TETANUS VACCINE 2009 PHYSICAL (COMPREHENSIVE) 03/15/2017 03/15/2016, 08/25/2011 EXAM INFLUENZA VACCINE 03/26/2018 05/10/2011 CERVICAL CANCER SCREENING 03/15/2019 03/15/2016, 03/15/2016 HIV SCREENING Completed 03/16/2016, 08/25/2011 Results Not on filefrom Last 3 Months
--- OUTSIDE RECORDS SUMMARY | 2017-11-30 13:32 | XMS REPORT ---
Author Author DAVID GUIDO Organization [facility] Address [address] [place] [address] Care Team Providers Care Documentation Improvement Specialist Name Role Phone DAVID GUIDO Unavailable PROBLEMS Type Condition ICD9-CM Code OGK51-MH Code Onset Dates Condition Status SNOMED Code Problem Previous section complicating O34.219 Active 640616001 Problem Anxiety F41.9 Active 86833888 Problem Substance abuse F19.10 Active 50281148 ALLERGIES No Information ENCOUNTERS Encounter Location Date Diagnosis [facility] [address] [address] Nov, [facility] [address] 59661- 8739 Nov, [facility] [address] 0[address]- 7584 Nov, [facility] [address] 47107- 0969 October, [facility] [id number] [place] [address] 83035- 7234 October, Third trimester Z34.93 ; 33 weeks gestation of Z3A.33 and Previous section complicating O34.219 [facility] [id number] [place] [address] 24549- 9214 03 Oct, 2017 Third trimester Z34.93 ; 32 weeks gestation of Z3A.32 ; Previous section complicating O34.219 and Encounter for immunization Z23 [facility] [id number] [place] [address] 86249- 6189 Sep, [facility] [address] 86300- 4056 10 Sep, 2017 Third trimester Z34.93 and 28 weeks gestation of Z3A.28 [place] [address] [place] [address] 86961- 8302 02 Sep, 2017 [facility] [address] [place] [address] 42646 -5946 19 Aug, 2017 Sore throat J02.9 and Acute nasopharyngitis J00 [place] [id number] [place] [address] 24146- 2133 13 Aug, 2017 Second trimester Z34.92 ; Previous section complicating O34.219 and 24 weeks gestation of Z3A.24 [place] [id number] [place] [address] 12547- 8762 07 Jul, 2017 First trimester Z34.90 ; 19 weeks gestation of Z3A.19 and History of section Z98.891 [place] [id number] [place] [address] 23590- 3199 10 Jun, 2017 Second trimester Z34.92 and 15 weeks gestation of Z3A.15 [place] [id number] [place] [address] 86353- 5453 09 Jun, 2017 [place] [id number] [place] [address] 32339- 7415 13 May, 2017 First trimester Z34.90 and 11 weeks gestation of Z3A.11 [place] [address] [place] [address] 87868- 0223 14 Apr, 2017 [place] [address] [place] [address] 28478- 5985 14 Apr, 2017 Normal in multigravida Z34.80 ; First trimester Z34.90 ; UTI (urinary tract infection) in in first trimester O23.41 ; 7 weeks gestation of Z3A.01 and Previous section complicating O34.219 [place] [id number] [place] [address] 55869- 5722 Apr, [facility] [id number] [place] [address] 20499- 5013 Mar, Threatened miscarriage in early O20.0 [facility] [address] 28920- 5334 Mar, Anxiety F41.9 and Substance abuse F19.10 [facility] [address] 0[address] -9037 Mar, Dysuria R30.0 and Vaginal candidiasis B37.3 [facility] [address] 72188- 0773 Mar, [facility] [address] 21075- 4671 Mar, [facility] [address] 43715- 2538 Mar, Encounter for test Z32.00 [facility] [address] 58299- 6416 Mar, [facility] [address] 40386- 0327 Mar, Anxiety F41.9 and Substance abuse F19.10 [facility] [address] [place] [address] Feb, Encounter for examination and observation for unspecified reason Z04.9 [facility] [address] [place] [address] Feb, [facility] [id number] [place] [address] 24487- 0324 Feb, [facility] [address] 37759- 8522 Feb, Anxiety F41.9 and Substance abuse F19.10 [facility] [address] 23145- 8598 Jan, Left breast mass N63 ; Encounter for IUD removal Z30.432 and control counseling Z30.09 [facility] [address] [facility] [id number] [address] Jan, IMMUNIZATIONS No Known Immunizations SOCIAL HISTORY Never Assessed REASON FOR VISIT Requests return call PLAN OF CARE VITAL SIGNS MEDICATIONS Unknown Medications RESULTS No Results PROCEDURES No Known procedures INSTRUCTIONS MEDICATIONS ADMINISTERED No Known Medications MEDICAL (GENERAL) HISTORY Type Description Date Surgical History section 2012 Surgical History orthopedic surgery-right hand ring finger Surgical History appendectomy Hospitalization History childbirth only
--- OUTSIDE RECORDS SUMMARY | 2017-11-30 13:32 | XMS REPORT ---
Author Author ALEJANDRAREANNA BUSTOS [facility] Address [address] [place] [address] Care Team Providers Care Waistline Joiner Overlock Name Role Phone REANNA ROBERTS Unavailable PROBLEMS Type Condition ICD9-CM Code TEN91-JA Code Onset Dates Condition Status SNOMED Code Problem Previous section complicating O34.219 Active 318046415 Problem Anxiety F41.9 Active 36728733 Problem Substance abuse F19.10 Active 15491844 ALLERGIES No Information ENCOUNTERS Encounter Location Date Diagnosis [place] [address] 6[address] Nov, [facility] [address] 45046- 0573 Nov, [facility] [address] 79663- 5344 Nov, [facility] [address] 27247- 0041 October, [facility] [id number] [place] [address] 51843- 1947 October, [facility] [address] 50484- 8219 October, Third trimester Z34.93 and Encounter for immunization Z23 [facility] [address] [address]- [address] Sep, [place] [address] 03778- 4408 Sep, Third trimester Z34.93 and 28 weeks gestation of Z3A.28 [place] [address] 6[address]31- 4108 Sep, [facility] [address] [address] 19 Aug, 2017 Sore throat J02.9 and Acute nasopharyngitis J00 [facility] [address] [address]- [address] 13 Aug, 2017 Second trimester Z34.92 ; Previous section complicating O34.219 and 24 weeks gestation of Z3A.24 [facility] [address] [address]- 6762 07 Jul, 2017 First trimester Z34.90 ; 19 weeks gestation of Z3A.19 and History of section Z98.891 [facility] [address] [address]- 4676 10 Jun, 2017 Second trimester Z34.92 and 15 weeks gestation of Z3A.15 [place] [id number] [place] [address] 27348- 7596 09 Jun, 2017 [place] [id number] [place] [address] 44056- 2998 13 May, 2017 First trimester Z34.90 and 11 weeks gestation of Z3A.11 [facility] [address] [address]- 6585 14 Apr, 2017 [place] [address] [place] [address] 07288- 3662 14 Apr, 2017 Normal in multigravida Z34.80 ; First trimester Z34.90 ; UTI (urinary tract infection) in in first trimester O23.41 ; 7 weeks gestation of Z3A.01 and Previous section complicating O34.219 [facility] [address] [address]- [address] 02 Apr, 2017 [facility] [address] [address]- 1[address] Mar, Threatened miscarriage in early O20.0 [facility] [id number] [place] [address] 68597- 4249 Mar, Anxiety F41.9 and Substance abuse F19.10 [facility] [id number] [place] [address] 06112 -5536 Mar, Dysuria R30.0 and Vaginal candidiasis B37.3 [facility] [address] 21029- 7177 Mar, [facility] [address] 34063- 2598 Mar, [facility] [address] 16351- 3849 Mar, Encounter for test Z32.00 [facility] [address] 46922- 8325 Mar, [facility] [address] 33198- 2201 Mar, Anxiety F41.9 and Substance abuse F19.10 [facility] [address] [place] [address] Feb, Encounter for examination and observation for unspecified reason Z04.9 [facility] [address] [place] [address] Feb, [facility] [id number] [place] [address] 18034- 7451 Feb, [facility] [address] 56125- 9341 Feb, Anxiety F41.9 and Substance abuse F19.10 [facility] [address] 85543- 6486 Jan, Left breast mass N63 ; Encounter for IUD removal Z30.432 and control counseling Z30.09 [facility] [id number] [place] [address] 52962- 7768 Jan, IMMUNIZATIONS No Known Immunizations SOCIAL HISTORY Never Assessed REASON FOR VISIT FORMAL Assessment PLAN OF CARE VITAL SIGNS MEDICATIONS Unknown Medications RESULTS No Results PROCEDURES Procedure Date Ordered Result Body Site ALCOHOL AND/OR DRUG ASSESSMENT Mar 23, 2017 INSTRUCTIONS MEDICATIONS ADMINISTERED No Known Medications MEDICAL (GENERAL) HISTORY Type Description Date Surgical History section 2012 Surgical History orthopedic surgery-right hand ring finger Surgical History appendectomy Hospitalization History childbirth only
--- OUTSIDE RECORDS SUMMARY | 2017-11-30 13:32 | XMS REPORT ---
Author Author JEREMY ASHLEY [facility] Address [address] [place] [address] Care Team Providers Care Medical Services Coordinator Name Role Phone JEREMYNAOMI BARRONHANY Unavailable PROBLEMS Type Condition ICD9-CM Code KCW42-MM Code Onset Dates Condition Status SNOMED Code Problem Previous section complicating O34.219 Active 047668445 Problem Anxiety F41.9 Active 04416387 Problem Substance abuse F19.10 Active 88628016 ALLERGIES No Information ENCOUNTERS Encounter Location Date Diagnosis [place] [id number] [place] [address] 62400- 8046 Nov, [facility] [id number] [place] [address] 92003- 9391 Nov, [facility] [id number] [place] [address] 43626- 7158 Nov, [facility] [id number] [place] [address] 52221- 3413 October, [facility] [id number] [place] [address] 13898- 5087 October, Third trimester Z34.93 ; 33 weeks gestation of Z3A.33 and Previous section complicating O34.219 [facility] [id number] [place] [address] 55580- 2205 03 Oct, 2017 Third trimester Z34.93 ; 32 weeks gestation of Z3A.32 ; Previous section complicating O34.219 and Encounter for immunization Z23 [facility] [id number] [place] [address] 73814- 9304 Sep, [facility] [id number] [place] [address] 56784- 7609 10 Sep, 2017 Third trimester Z34.93 and 28 weeks gestation of Z3A.28 [place] [address] [place] [address] 91907- 1863 02 Sep, 2017 [facility] [address] [place] [address] 54372 -2286 19 Aug, 2017 Sore throat J02.9 and Acute nasopharyngitis J00 [place] [id number] [place] [address] 64520- 8029 13 Aug, 2017 Second trimester Z34.92 ; Previous section complicating O34.219 and 24 weeks gestation of Z3A.24 [place] [id number] [place] [address] 31005- 9736 07 Jul, 2017 First trimester Z34.90 ; 19 weeks gestation of Z3A.19 and History of section Z98.891 [place] [id number] [place] [address] 81731- 8760 10 Jun, 2017 Second trimester Z34.92 and 15 weeks gestation of Z3A.15 [place] [id number] [place] [address] 73719- 9388 09 Jun, 2017 [place] [id number] [place] [address] 28189- 8782 13 May, 2017 First trimester Z34.90 and 11 weeks gestation of Z3A.11 [place] [address] [place] [address] 38918- 0613 14 Apr, 2017 [place] [id number] [place] [address] 96037- 9104 14 Apr, 2017 Normal in multigravida Z34.80 ; First trimester Z34.90 ; UTI (urinary tract infection) in in first trimester O23.41 ; 7 weeks gestation of Z3A.01 and Previous section complicating O34.219 [place] [id number] [place] [address] 32124- 3520 Apr, [facility] [id number] [place] [address] 73729- 7818 Mar, Threatened miscarriage in early O20.0 [facility] [id number] [place] [address] 90817- 8548 Mar, Anxiety F41.9 and Substance abuse F19.10 [facility] [address] [address]46 Mar, Dysuria R30.0 and Vaginal candidiasis B37.3 [facility] [address] 587014- 9422 Mar, [facility] [address] 51617- 0977 Mar, [facility] [address] 19517- 2439 Mar, Encounter for test Z32.00 [facility] [address] 84322- 7397 Mar, [facility] [address] 16319- 4540 Mar, Anxiety F41.9 and Substance abuse F19.10 [facility] [address] [place] [address] Feb, Encounter for examination and observation for unspecified reason Z04.9 [facility] [address] [place] [address] Feb, [facility] [id number] [place] [address] 12665- 1265 Feb, [facility] [address] 21812- 5828 Feb, Anxiety F41.9 and Substance abuse F19.10 [facility] [id number] [place] [address] 50001- 1642 Jan, Left breast mass N63 ; Encounter for IUD removal Z30.432 and control counseling Z30.09 [facility] [address] [facility] [id number] [place] [address] Jan, IMMUNIZATIONS No Known Immunizations SOCIAL HISTORY Never Assessed REASON FOR VISIT Triage PLAN OF CARE VITAL SIGNS MEDICATIONS Unknown Medications RESULTS Name Result Date Reference Range Ultrasound : OB, Early <14 WEEKS 2017-04-25 HCG, QUANTITATIVE 2017-04-25 Request Problem Specimen Identification Status hCG,Beta Subunit,Qnt,Serum HCG, TOTAL, QN PROCEDURES Procedure Date Ordered Result Body Site CHORIONIC GONADOTROPIN TEST Apr 25, 2017 INSTRUCTIONS MEDICATIONS ADMINISTERED No Known Medications MEDICAL (GENERAL) HISTORY Type Description Date Surgical History section 2012 Surgical History orthopedic surgery-right hand ring finger Surgical History appendectomy Hospitalization History childbirth only
--- OUTSIDE RECORDS SUMMARY | 2017-11-30 13:32 | XMS REPORT ---
Author Author HALLIE LOCKWOOD [facility] Address [address] [place] [address] Care Team Providers Care Dish Machine Operator Name Role Phone HALLIE LOCKWOOD Unavailable PROBLEMS Type Condition ICD9-CM Code UQJ47-WB Code Onset Dates Condition Status SNOMED Code Problem Previous section complicating O34.219 Active 373077825 Problem Anxiety F41.9 Active 64660962 Problem Substance abuse F19.10 Active 13795204 ALLERGIES No Information ENCOUNTERS Encounter Location Date Diagnosis [place] [address] [address] Nov, [facility] [address] [address] Nov, [facility] [address] [address] Nov, [facility] [address] [address]78 October, [facility] [address] [place] [id number] [place] [address]74- 9078 October, [facility] [address] [address] October, Third trimester Z34.93 and Encounter for immunization Z23 [facility] [address] [address] Sep, [facility] [address] [address] Sep, Third trimester Z34.93 and 28 weeks gestation of Z3A.28 [facility] [address] [address] Sep, [facility] [address] [place] [id number] [address] 19 Aug, 2017 Sore throat J02.9 and Acute nasopharyngitis J00 [facility] [address] [address] 13 Aug, 2017 Second trimester Z34.92 ; Previous section complicating O34.219 and 24 weeks gestation of Z3A.24 [facility] [address] [address] 07 Jul, 2017 First trimester Z34.90 ; 19 weeks gestation of Z3A.19 and History of section Z98.891 [place] [address] [address] 10 Jun, 2017 Second trimester Z34.92 and 15 weeks gestation of Z3A.15 [place] [address] [place] [id number] [place] [address] 25173- 6922 09 Jun, 2017 [place] [address] [place] [address] 42784- 0764 13 May, 2017 First trimester Z34.90 and 11 weeks gestation of Z3A.11 [place] [address] [address] 14 Apr, 2017 [place] [address] [address] 14 Apr, 2017 Normal in multigravida Z34.80 ; First trimester Z34.90 ; UTI (urinary tract infection) in in first trimester O23.41 ; 7 weeks gestation of Z3A.01 and Previous section complicating O34.219 [facility] [address] [address] 02 Apr, 2017 [facility] [address] [address] Mar, Threatened miscarriage in early O20.0 [facility] [address] [place] [id number] [place] [address]28- 0010 Mar, Anxiety F41.9 and Substance abuse F19.10 [facility] [address] [address] Mar, Dysuria R30.0 and Vaginal candidiasis B37.3 [facility] [address] [address]- 228[address] Mar, [facility] [address] [address] Mar, [facility] [address] 09[address]- 7781 Mar, Encounter for test Z32.00 [facility] [address] [address]- 6206 Mar, [facility] [address] [address] 24[address] Mar, Anxiety F41.9 and Substance abuse F19.10 [facility] [address] [place] [address] Feb, Encounter for examination and observation for unspecified reason Z04.9 [facility] [address] [place] [address] Feb, [facility] [address] [place] [address] [id number] [place] [address] 49859- 9597 Feb, [facility] [address] [address] Feb, Anxiety F41.9 and Substance abuse F19.10 [facility] [address] [address]- 6964 Jan, Left breast mass N63 ; Encounter for IUD removal Z30.432 and control counseling Z30.09 [facility] [address] [place] [id number] [place] [address] 37[address]- 6003 Jan, IMMUNIZATIONS No Known Immunizations SOCIAL HISTORY Never Assessed REASON FOR VISIT intake PLAN OF CARE Activity Details Follow Up 1 Week Reason: Follow-up VITAL SIGNS MEDICATIONS Unknown Medications RESULTS No Results PROCEDURES Procedure Date Ordered Result Body Site Psychotherapy, patient &/family, 30 minutes, established patient Mar 28, 2017 INSTRUCTIONS MEDICATIONS ADMINISTERED No Known Medications MEDICAL (GENERAL) HISTORY Type Description Date Surgical History section 2012 Surgical History orthopedic surgery-right hand ring finger Surgical History appendectomy Hospitalization History childbirth only
--- OUTSIDE RECORDS SUMMARY | 2017-11-30 13:32 | XMS REPORT ---
Author Author DAVID GUIDO Organization [facility] Address [address] [place] [address] Care Team Providers Care Dramatic Reader Name Role Phone DAVID GUIDO Unavailable PROBLEMS Type Condition ICD9-CM Code XNY90-FG Code Onset Dates Condition Status SNOMED Code Problem Previous section complicating O34.219 Active 790783615 Problem Anxiety F41.9 Active 78222953 Problem Substance abuse F19.10 Active 96915804 ALLERGIES No Information ENCOUNTERS Encounter Location Date Diagnosis [facility] [address] [address] Nov, [facility] [address] [address] Nov, [facility] [address] [address] Nov, [facility] [address] [address] October, [facility] [address] [place] [id number] [place] [address]- [address] October, Third trimester Z34.93 ; 33 weeks gestation of Z3A.33 and Previous section complicating O34.219 [facility] [address] [place] [id number] [place] [address]- 3284 03 Oct, 2017 Third trimester Z34.93 ; 32 weeks gestation of Z3A.32 ; Previous section complicating O34.219 and Encounter for immunization Z23 [facility] [address] [place] [id number] [place] [address] 87025- 7126 Sep, [facility] [address] [address] 10 Sep, 2017 Third trimester Z34.93 and 28 weeks gestation of Z3A.28 [place] [address] [place] [address] 96029- 0018 02 Sep, 2017 [facility] [address] [place] [address] -[address] 19 Aug, 2017 Sore throat J02.9 and Acute nasopharyngitis J00 [place] [address] [place] [id number] [place] [address] 82043- 7476 13 Aug, 2017 Second trimester Z34.92 ; Previous section complicating O34.219 and 24 weeks gestation of Z3A.24 [place] [address] [place] [id number] [place] [address] 71493- 8355 07 Jul, 2017 First trimester Z34.90 ; 19 weeks gestation of Z3A.19 and History of section Z98.891 [place] [address] [place] [id number] [place] [address] 57158- 1059 10 Jun, 2017 Second trimester Z34.92 and 15 weeks gestation of Z3A.15 [place] [address] [place] [id number] [place] [address] 92125- 8874 09 Jun, 2017 [place] [address] [place] [id number] [place] [address] 05566- 7095 13 May, 2017 First trimester Z34.90 and 11 weeks gestation of Z3A.11 [place] [address] [place] [address] 71002- 8087 14 Apr, 2017 [place] [address] [place] [address] 45757- 3312 14 Apr, 2017 Normal in multigravida Z34.80 ; First trimester Z34.90 ; UTI (urinary tract infection) in in first trimester O23.41 ; 7 weeks gestation of Z3A.01 and Previous section complicating O34.219 [place] [address] [place] [id number] [place] [address] 48247- 1456 Apr, [facility] [address] [place] [id number] [place] [address] 95990- 1815 Mar, Threatened miscarriage in early O20.0 [facility] [address] [address]- 4879 Mar, Anxiety F41.9 and Substance abuse F19.10 [facility] [address] [address] Mar, Dysuria R30.0 and Vaginal candidiasis B37.3 [facility] [address] [address]- 0063 Mar, [facility] [address] [address]- 6430 Mar, [facility] [address] [address]- 0211 Mar, Encounter for test Z32.00 [facility] [address] 314[address]- 6867 Mar, [facility] [address] [address]- 0735 Mar, Anxiety F41.9 and Substance abuse F19.10 [facility] [address] [place] [address] Feb, Encounter for examination and observation for unspecified reason Z04.9 [facility] [address] [place] [address] Feb, [facility] [address] [place] [id number] [place] [address] 90750- 5973 Feb, [facility] [address] [address]- [address]68 Feb, Anxiety F41.9 and Substance abuse F19.10 [facility] [address] 79[address]- 8389 Jan, Left breast mass N63 ; Encounter for IUD removal Z30.432 and control counseling Z30.09 [facility] [address] [facility] [id number] [place] [address] Jan, IMMUNIZATIONS No Known Immunizations SOCIAL HISTORY Never Assessed REASON FOR VISIT OB History PLAN OF CARE VITAL SIGNS MEDICATIONS Unknown Medications RESULTS No Results PROCEDURES No Known procedures INSTRUCTIONS MEDICATIONS ADMINISTERED No Known Medications MEDICAL (GENERAL) HISTORY Type Description Date Surgical History section 2012 Surgical History orthopedic surgery-right hand ring finger Surgical History appendectomy Hospitalization History childbirth only
--- OUTSIDE RECORDS SUMMARY | 2017-11-30 13:32 | XMS REPORT ---
Author Author ELOY Valdez Organization [facility] Address [address] [place] [address] Care Team Providers Care Medical Education Manager Name Role Phone Courtney ELOY Unavailable PROBLEMS Type Condition ICD9-CM Code CBX66-SM Code Onset Dates Condition Status SNOMED Code Problem Previous section complicating O34.219 Active 348990529 Problem Anxiety F41.9 Active 90069400 Problem Substance abuse F19.10 Active 92085654 ALLERGIES No Information ENCOUNTERS Encounter Location Date Diagnosis [facility] [address] [place] [id number] [place] [address]646- 2431 Nov, [facility] [address] [place] [address] [id number] [place] [address] 11761- 6952 Nov, [facility] [address] [place] [address] [id number] [place] [address] 59378- 5840 Nov, [facility] [address] [place] [address] [id number] [place] [address] 81653- 8754 October, [facility] [address] [place] [address] [id number] [place] [address] 12204- 6635 October, [facility] [address] [place] [address] [id number] [place] [address] 33020- 9174 October, [facility] [address] [place] [address] [id number] [place] [address] 66323- 6257 Sep, [facility] [address] [place] [id number] [place] [address] 73616- 7761 Sep, Third trimester Z34.93 and 28 weeks gestation of Z3A.28 [facility] [address] [place] [id number] [place] [address] 62996- 4517 Sep, [facility] [address] [address] Aug, Sore throat J02.9 and Acute nasopharyngitis J00 [facility] [address] [id number] [address] Aug, Second trimester Z34.92 ; Previous section complicating O34.219 and 24 weeks gestation of Z3A.24 [place] [address] [place] [id number] [place] [address] 64019- 0270 07 Jul, 2017 First trimester Z34.90 ; 19 weeks gestation of Z3A.19 and History of section Z98.891 [place] [address] [place] [id number] [place] [address] 80734- 0778 10 Jun, 2017 Second trimester Z34.92 and 15 weeks gestation of Z3A.15 [place] [address] [place] [id number] [place] [address] 63422- 3239 09 Jun, 2017 [place] [address] [place] [id number] [place] [address] 94278- 8086 13 May, 2017 First trimester Z34.90 and 11 weeks gestation of Z3A.11 [place] [address] [place] [address] 55145- 4550 14 Apr, 2017 [place] [address] [place] [id number] [place] [address] 55227- 5253 14 Apr, 2017 Normal in multigravida Z34.80 ; First trimester Z34.90 ; UTI (urinary tract infection) in in first trimester O23.41 ; 7 weeks gestation of Z3A.01 and Previous section complicating O34.219 [place] [address] [place] [id number] [place] [address] 35105- 8094 02 Apr, 2017 [place] [address] [place] [address] 98519- 2423 Mar, Threatened miscarriage in early O20.0 [place] [address] [address]71- 6673 Mar, Anxiety F41.9 and Substance abuse F19.10 [facility] [address] [address] Mar, Dysuria R30.0 and Vaginal candidiasis B37.3 [facility] [address] 95970- 9434 Mar, [facility] [address] 94845- 6833 Mar, [facility] [address] 14501- 3475 Mar, Encounter for test Z32.00 [facility] [address] 55209- 2943 Mar, [facility] [address] 82632- 1430 Mar, Anxiety F41.9 and Substance abuse F19.10 [facility] [address] [place] [address] Feb, Encounter for examination and observation for unspecified reason Z04.9 [facility] [address] [place] [address] Feb, [facility] [address] [place] [address] [id number] [place] [address] 39887- 7663 Feb, [facility] [address] [address]17- 1033 Feb, Anxiety F41.9 and Substance abuse F19.10 [facility] [address] 76448- 7504 Jan, Left breast mass N63 ; Encounter for IUD removal Z30.432 and control counseling Z30.09 [facility] [address] 62837- 0894 Jan, IMMUNIZATIONS No Known Immunizations SOCIAL HISTORY Never Assessed REASON FOR VISIT intake PLAN OF CARE Activity Details Follow Up Not rescheduled Reason:Drug assessment VITAL SIGNS MEDICATIONS Unknown Medications RESULTS No Results PROCEDURES Procedure Date Ordered Result Body Site Psych diagnostic evaluation, new patient Mar 09, 2017 INSTRUCTIONS MEDICATIONS ADMINISTERED No Known Medications MEDICAL (GENERAL) HISTORY Type Description Date Surgical History section 2012 Surgical History orthopedic surgery-right hand ring finger Surgical History appendectomy Hospitalization History childbirth only
--- OUTSIDE RECORDS SUMMARY | 2017-11-30 13:33 | XMS REPORT ---
Author Author DAVID GUIDO Organization [facility] Address [address] [place] [address] Care Team Providers Care Graphic Design Specialist Name Role Phone DAVID GUIDO Unavailable PROBLEMS Type Condition ICD9-CM Code IVR12-EW Code Onset Dates Condition Status SNOMED Code Problem Previous section complicating O34.219 Active 517849420 Problem Anxiety F41.9 Active 95009554 Problem Substance abuse F19.10 Active 55720503 ALLERGIES No Known Allergies ENCOUNTERS Encounter Location Date Diagnosis [facility] [address] [address] Sep, [facility] [address] [id number] [place] [address] 68961- 6098 Sep, [facility] [address] [place] [id number] [place] [address]4270 Aug, Sore throat J02.9 and Acute nasopharyngitis J00 [facility] [address] [place] [id number] [place] [address] 37225- 8746 13 Aug, 2017 Second trimester Z34.92 ; Previous section complicating O34.219 and 24 weeks gestation of Z3A.24 [facility] [address] [place] [id number] [place] [address] 72359- 8095 07 Jul, 2017 First trimester Z34.90 ; 19 weeks gestation of Z3A.19 and History of section Z98.891 [place] [address] [address]- 5445 10 Jun, 2017 Second trimester Z34.92 and 15 weeks gestation of Z3A.15 [place] [address] 109[address]- 9849 Jun, [facility] [address] [place] [address] 32807- 4102 May, First trimester Z34.90 and 11 weeks gestation of Z3A.11 [facility] [address] [id number] [place] [address] 18283- 6879 14 Apr, 2017 [facility] [address] [place] [id number] [place] [address] 98752- 1278 Apr, Normal in multigravida Z34.80 ; First trimester Z34.90 ; UTI (urinary tract infection) in in first trimester O23.41 ; 7 weeks gestation of Z3A.01 and Previous section complicating O34.219 [place] [address] [place] [id number] [place] [address] 29092- 3618 Apr, [place] [address] 6[address]- 9329 Mar, Threatened miscarriage in early O20.0 [place] [address] [place] [id number] [place] [address] 48566- 5032 Mar, Anxiety F41.9 and Substance abuse F19.10 [facility] [address] [id number] [place] [address] 24579 -9950 Mar, Dysuria R30.0 and Vaginal candidiasis B37.3 [facility] [address] [id number] [place] [address] 21492- 3617 Mar, [facility] [address] [place] [id number] [place] [address] 06265- 2382 Mar, [facility] [address] 45948- 0384 Mar, Encounter for test Z32.00 [facility] [address] [id number] [place] [address] 76869- 9915 Mar, [facility] [address] 12741- 2630 Mar, Anxiety F41.9 and Substance abuse F19.10 [facility] [address] [place] [address] 28 Feb, 2017 Encounter for examination and observation for unspecified reason Z04.9 [facility] [address] [place] [address] 21 Feb, 2017 [facility] [address] [place] [address] 91333- 4351 Feb, [facility] [address] [place] [id number] [place] [address] 26602- 7483 14 Feb, 2017 Anxiety F41.9 and Substance abuse F19.10 [place] [address] [id number] [place] [address] 22959- 1106 Jan, Left breast mass N63 ; Encounter for IUD removal Z30.432 and control counseling Z30.09 [place] [address] [place] [address] 36563- 4526 Jan, IMMUNIZATIONS No Known Immunizations SOCIAL HISTORY Never Assessed REASON FOR VISIT est care, Has had an IUD since 04/2016. Was placed at . Has pelvic pain and bleeding w/ intercourse ever since. Wants it taken out. -JOSH Brumfield PLAN OF CARE Activity Details Follow Up Will call for appt with Kenny Reason: VITAL SIGNS Height 64.5 in 2017-01-25 Weight 142 lbs 2017-01-25 Temperature 98.4 degrees Fahrenheit 2017-01-25 Heart Rate 80 bpm 2017-01-25 Respiratory Rate 18 2017-01-25 BMI 24.00 kg/m2 2017-01-25 Blood pressure systolic 90 mmHg 2017-01-25 Blood pressure diastolic 60 mmHg 2017-01-25 MEDICATIONS Medication Instructions Dosage Frequency Start Date End Date Duration Status Mirena (52 MG) 20 MCG/24HR Active RESULTS No Results PROCEDURES Procedure Date Ordered Result Body Site REMOVE INTRAUTERINE DEVICE Jan 25, 2017 INSTRUCTIONS MEDICATIONS ADMINISTERED No Known Medications MEDICAL (GENERAL) HISTORY Type Description Date Surgical History section 2012 Surgical History orthopedic surgery-right hand ring finger Surgical History appendectomy Hospitalization History childbirth only
--- OUTSIDE RECORDS SUMMARY | 2017-11-30 13:33 | XMS REPORT ---
Author Author RAYA JIMÉNEZ [facility] Address [address] [place] [address] Care Team Providers Care Manual Training Teacher Name Role Phone RAYA JIMÉNEZ Unavailable PROBLEMS Type Condition ICD9-CM Code ZSV84-GW Code Onset Dates Condition Status SNOMED Code Problem Previous section complicating O34.219 Active 969109715 Problem Anxiety F41.9 Active 24047964 Problem Substance abuse F19.10 Active 29600172 ALLERGIES No Information ENCOUNTERS Encounter Location Date Diagnosis [facility] [id number] [place] [address] 86180- 0861 Nov, [facility] [id number] [place] [address] 13262- 4648 Nov, [facility] [id number] [place] [address] 71014- 3001 Nov, [facility] [id number] [place] [address] 83469- 0685 October, [facility] [id number] [place] [address] 17674- 3888 October, [facility] [id number] [place] [address] 92951- 1605 October, [facility] [id number] [place] [address] 22986- 0793 Sep, [facility] [id number] [place] [address] 65608- 5097 Sep, Third trimester Z34.93 and 28 weeks gestation of Z3A.28 [facility] [id number] [place] [address] 03946- 9843 Sep, [facility] [address] [address] Aug, Sore throat J02.9 and Acute nasopharyngitis [address] [place] [id number] [place] [address] 89556- 9273 Aug, Second trimester Z34.92 ; Previous section complicating O34.219 and 24 weeks gestation of Z3A.24 [place] [id number] [place] [address] 39135- 8439 07 Jul, 2017 First trimester Z34.90 ; 19 weeks gestation of Z3A.19 and History of section Z98.891 [place] [id number] [place] [address] 74800- 0656 10 Jun, 2017 Second trimester Z34.92 and 15 weeks gestation of Z3A.15 [place] [id number] [place] [address] 74126- 8003 09 Jun, 2017 [place] [id number] [place] [address] 67181- 4532 May, First trimester Z34.90 and 11 weeks gestation of Z3A.11 [place] [id number] [place] [address] 69636- 7704 14 Apr, 2017 [place] [id number] [place] [address] 72021- 0361 14 Apr, 2017 Normal in multigravida Z34.80 ; First trimester Z34.90 ; UTI (urinary tract infection) in in first trimester O23.41 ; 7 weeks gestation of Z3A.01 and Previous section complicating O34.219 [place] [id number] [place] [address] 71034- 6109 02 Apr, 2017 [place] [id number] [place] [address] 39308- 4993 Mar, Threatened miscarriage in early O20.0 [place] [address] 23989- 9883 Mar, Anxiety F41.9 and Substance abuse F19.10 [facility] [address] 16[address]67[address] Mar, Dysuria R30.0 and Vaginal candidiasis B37.3 [facility] [address] 34171- 9760 Mar, [facility] [address] 71136- 9496 Mar, [facility] [address] 18801- 4977 Mar, Encounter for test Z32.00 [facility] [address] 02164- 5739 Mar, [facility] [address] 34378- 0992 Mar, Anxiety F41.9 and Substance abuse F19.10 [facility] [address] [place] [address] Feb, Encounter for examination and observation for unspecified reason Z04.9 [facility] [address] [place] [address] Feb, [facility] [address] 24720- 0980 Feb, [facility] [address] 67310- 1030 Feb, Anxiety F41.9 and Substance abuse F19.10 [facility] [address] 74436- 1506 Jan, Left breast mass N63 ; Encounter for IUD removal Z30.432 and control counseling Z30.09 [facility] [address] 44173- 3836 Jan, IMMUNIZATIONS No Known Immunizations SOCIAL HISTORY Never Assessed REASON FOR VISIT ATS Brief PLAN OF CARE VITAL SIGNS MEDICATIONS Unknown Medications RESULTS No Results PROCEDURES Procedure Date Ordered Result Body Site Alcohol and/or drug services Mar 16, 2017 INSTRUCTIONS MEDICATIONS ADMINISTERED No Known Medications MEDICAL (GENERAL) HISTORY Type Description Date Surgical History section 2012 Surgical History orthopedic surgery-right hand ring finger Surgical History appendectomy Hospitalization History childbirth only
--- OUTSIDE RECORDS SUMMARY | 2017-11-30 13:33 | XMS REPORT ---
Author Author HALLIE LOCKWOOD [facility] Address [address] [place] [address] Care Team Providers Care African History Professor Name Role Phone HALLIE LOCKWOOD Unavailable PROBLEMS Type Condition ICD9-CM Code GPH20-PP Code Onset Dates Condition Status SNOMED Code Problem Previous section complicating O34.219 Active 107993980 Problem Anxiety F41.9 Active 30646881 Problem Substance abuse F19.10 Active 73332370 ALLERGIES No Information ENCOUNTERS Encounter Location Date Diagnosis [place] [address] [address] Nov, [facility] [place] [address] 984[address] Nov, [facility] [place] [id number] [place] [address] 84018- 3463 Nov, [facility] [place] [id number] [place] [address] 12039- 5819 October, [facility] [place] [id number] [place] [address] 47404- 9371 October, Third trimester Z34.93 ; 33 weeks gestation of Z3A.33 and Previous section complicating O34.219 [facility] [place] [id number] [place] [address] 49609- 6883 03 Oct, 2017 Third trimester Z34.93 ; 32 weeks gestation of Z3A.32 ; Previous section complicating O34.219 and Encounter for immunization Z23 [facility] [place] [id number] [place] [address] 19846- 9718 Sep, [facility] [place] [address] 01414- 7720 Sep, Third trimester Z34.93 and 28 weeks gestation of Z3A.28 [place] [id number] [place] [address] 77058- 5360 02 Sep, 2017 [facility] [address] [place] [address] 09027 [address]7298 Aug, Sore throat J02.9 and Acute nasopharyngitis J00 [place] [id number] [place] [address] 51594- 3079 Aug, Second trimester Z34.92 ; Previous section complicating O34.219 and 24 weeks gestation of Z3A.24 [place] [id number] [place] [address] 17066- 5441 07 Jul, 2017 First trimester Z34.90 ; 19 weeks gestation of Z3A.19 and History of section Z98.891 [place] [id number] [place] [address] 43299- 7380 10 Jun, 2017 Second trimester Z34.92 and 15 weeks gestation of Z3A.15 [place] [id number] [place] [address] 21944- 2429 09 Jun, 2017 [place] [address] [place] [address] 14061- 1433 May, First trimester Z34.90 and 11 weeks gestation of Z3A.11 [place] [address] [place] [address] 62246- 8874 14 Apr, 2017 [place] [id number] [place] [address] 29281- 9254 14 Apr, 2017 Normal in multigravida Z34.80 ; First trimester Z34.90 ; UTI (urinary tract infection) in in first trimester O23.41 ; 7 weeks gestation of Z3A.01 and Previous section complicating O34.219 [place] [id number] [place] [address] 90019- 3999 Apr, [facility] [place] [id number] [place] [address] 22213- 5952 Mar, Threatened miscarriage in early O20.0 [facility] [place] [address] 81957- 6634 Mar, Anxiety F41.9 and Substance abuse F19.10 [facility] [address] 728[address]6 Mar, Dysuria R30.0 and Vaginal candidiasis B37.3 [facility] [place] [address] 21753- 9762 Mar, [facility] [place] [address] 73776- 7347 Mar, [facility] [place] [address] 74878- 0456 Mar, Encounter for test Z32.00 [facility] [place] [address] 45484- 7563 Mar, [facility] [place] [address] 43340- 7430 Mar, Anxiety F41.9 and Substance abuse F19.10 [facility] [address] [place] [address] Feb, Encounter for examination and observation for unspecified reason Z04.9 [facility] [address] [place] [address] Feb, [facility] [place] [id number] [place] [address] 37784- 5713 Feb, [facility] [place] [address] 61450- 4234 Feb, Anxiety F41.9 and Substance abuse F19.10 [facility] [place] [address] 95497- 2233 Jan, Left breast mass N63 ; Encounter for IUD removal Z30.432 and control counseling Z30.09 [facility] [place] [address] [facility] [id number] [place] [address] Jan, IMMUNIZATIONS No Known Immunizations SOCIAL HISTORY Never Assessed REASON FOR VISIT BH Follow-up Anxiety PLAN OF CARE VITAL SIGNS MEDICATIONS Unknown Medications RESULTS No Results PROCEDURES Procedure Date Ordered Result Body Site Psychotherapy, patient &/family, 45 minutes, established patient Apr 24, 2017 INSTRUCTIONS MEDICATIONS ADMINISTERED No Known Medications MEDICAL (GENERAL) HISTORY Type Description Date Surgical History section 2012 Surgical History orthopedic surgery-right hand ring finger Surgical History appendectomy Hospitalization History childbirth only
[2017-11-30 13:51] LABS: BASOPHILS % (AUTO) 0 % (0-10); EOSINOPHILS # (AUTO) 0.1 10^3/uL (0.0-0.3); EOSINOPHILS % (AUTO) 1 % (0-10); HEMATOCRIT 39 % (35-52); HEMOGLOBIN 13.3 G/DL (11.5-16.0); LYMPHOCYTES # (AUTO) 1.9 X 10^3 (1.0-4.0); LYMPHOCYTES % (AUTO) 16 % (12-44); MEAN CORPUSCULAR HEMOGLOBIN 30 PG (25-34); MEAN CORPUSCULAR HGB CONC 35 G/DL (32-36); MEAN CORPUSCULAR VOLUME 88 FL (80-99); MEAN PLATELET VOLUME 11.8 FL (7.4-10.4); MONOCYTES # (AUTO) 0.7 X 10^3 (0.0-1.0); MONOCYTES % (AUTO) 6 % (0-12); NEUTROPHILS # (AUTO) 9.1 X 10^3 (1.8-7.8); NEUTROPHILS % (AUTO) 78 % (42-75); PLATELET COUNT 206 10^3/uL (130-400); RED BLOOD COUNT 4.39 10^6/uL (4.35-5.85); RED CELL DISTRIBUTION WIDTH 13.5 % (10.0-14.5); WHITE BLOOD COUNT 11.7 10^3/uL (4.3-11.0)
[2017-11-30] MEDS: LACTATED RINGERS 1,000 ML IV PRN ×3 (14:03→15:10)
[2017-11-30] MEDS ORDERED: TERBUTALINE INJ 1 MG/ML (BRETHINE) AMP ONE (14:14)
[2017-11-30] MEDS ORDERED: TERBUTALINE INJ 1 MG/ML (BRETHINE) AMP SC ONE (14:15)
[2017-11-30] MEDS ORDERED: BUPIVACAINE SPINAL 0.75% (SENSORCAINE) 2 ML AMP ONE (14:45)
[2017-11-30] MEDS ORDERED: LIDOCAINE PF 2% 5 ML (XYLOCAINE) VIAL ONE (14:46)
[2017-11-30] MEDS ORDERED: ONDANSETRON 4 MG/2 ML (SDV) Z0FRAN ONE (14:46)
[2017-11-30] MEDS ORDERED: OXYTOCIN/NORMAL SALINE 1,000 ML IV ONE (14:46)
[2017-11-30] MEDS ORDERED: fentaNYL INJECTION 100 MCG/2 ML AMP ONE (14:48)
[2017-11-30] MEDS ORDERED: ONDANSETRON 4 MG/2 ML (SDV) Z0FRAN IV PRN (15:30)
[2017-11-30] MEDS ORDERED: diphenhydrAMINE 50 MG/ML INJ (BENADRYL) IV PRN (15:30)
[2017-11-30] MEDS ORDERED: NALOXONE 0.4 MG/ML 1 ML (NARCAN) VIAL IV PRN (15:30)
[2017-11-30] MEDS ORDERED: PHENYLEPHRINE 100 MCG/ML 10 ML (ANESTHESIA) SYR ONE (15:32)
[2017-11-30] MEDS ORDERED: KETOROLAC 30 MG/ML VIAL ONE (15:35)
[2017-11-30] MEDS ORDERED: PREN-37 PO (15:39)
[2017-11-30] MEDS ORDERED: OXYTOCIN/NORMAL SALINE 500 ML IV SCH (15:41)
[2017-11-30] MEDS ORDERED: D5 LR IV SOLUTION 1,000 ML IV SCH (15:41)
[2017-11-30] MEDS ORDERED: ONDANSETRON 4 MG/2 ML (SDV) Z0FRAN IVP PRN (15:45)
[2017-11-30] MEDS ORDERED: MEASLES,MUMPS,RUBELLA 1 EA INJ SC SCH (15:45)
[2017-11-30] MEDS ORDERED: TETANUS,DIPTH,PERTUSS P/F (BOOSTRIX) 0.5 ML VIAL IM SCH (15:45)
--- NOTE | 2017-11-30 15:57 | Cesarean Section Operative ---
Procedure Procedure Note Pre-operative Diagnosis: Ayse Figueroa is a 27 /Para 2 / 1, Gestational Age 37 2/7 weeks, previous section, labor, vaginal bleeding , deceleration Post-operative Diagnosis: same Procedure: Repeat low transverse section Physician: CELIO ORTEGA [employer] Director: Constanza Morales APRN Estimated blood loss: 700 mL Disposition: stable Findings: Viable male infant, Apgars 9/9, weight 7#4 oz, intact placenta, 3vc, normal appearing , tubes, and ovaries. Heart shaped uterus. Indications:Ayse Figueroa is a 27 /Para 2 / 1,Gestational Age 37 2/7 weeks, previous section, labor, vaginal bleeding, deceleration Procedure Details: Patient was admitted for evaluation due to vaginal bleeding. She was bright every 10 minutes, but during the evaluation period she began bright every 4-6 minutes and cervix was changing (3-4 cm). She also had a spontaneous deep deceleration for 3 minutes. This resolved without treatment and there was great variability before and after. IVF were given and Terbutaline, but contractions became more and more painful, so decision was made to proceed with scion at this time. The patient was seen in pre-op and the procedure was discussed with the patient in full, including the risks, benefits, and alternatives. All questions were answered. The patient was taken to the operating room and a time out was performed, verifying patient and procedure. After spinal anesthesia was placed by our anesthesia colleagues, the patient was placed in the dorsal supine with leftward tilt for uterine displacement.~ Her abdomen was then prepped and draped in the typical sterile fashion. A Pfannenstiel skin incision was made using a scalpel and carried down through the underlying fascia. The fascia was incised in the midline and tented up using Elyse clamps. On both the inferior and superior fascia side the rectus muscle was dissected off bluntly and sharply using Toussaint scissors. The peritoneum was identified and entered bluntly in the midline. This was then stretched laterally using manual strength. After entering the abdominal cavity and confirming lack of intraperitoneal adhesions, a large Dex retractor was placed and the lower uterine segment was visualized. The bladder was advanced over the lower uterine segment, so A bladder flap was created with the use of Metzenbaum scissors.~ A scalpel was utilized to make a low transverse uterine incision. Amniotomy was performed with an Allis clamp with return of clear fluid. The 's head was grasped and brought to the level of the incision. Silastic suction was placed and Fundal pressure was applied and was delivered without difficulty. There was a nuchal cord x 2 that was reduced. Mouth and nares were suctioned with bulb suction. After the umbilical cord was clamped and cut, the infant was handed off to the pediatric staff. A sample of cord blood was then obtained. The placenta was delivered intact via uterine massage. The uterus was noted to be heart shaped. The uterus was exteriorized and cleared of all clots and debris. The uterine incision was closed using 0 Vicryl in a running locked fashion. A second imbricated layer was placed using 0 Vicryl in a running fashion as well. The uterus was flexed forward and the posterior rectouterine space was inspected and cleared of all clots and debris. Again the hysterotomy site was examined and hemostasis was observed. The bilateral tubes and ovaries appeared normal. The uterus was placed back into the abdominal cavity and abdominal gutters were cleared of all clots and debris. A final check of the uterine incision showed it to be hemostatic. The peritoneum was closed using 3- 0 Vicryl in a running fashion. The fascia was closed with 0 Vicryl in a running fashion. The subcutaneous space was hemostatic, and irrigated. The subcutaneous space was closed with 3-0 Vicryl in several single interrupted stitches. The skin was then closed using 4-0 Monocryl in a running subcuticular fashion. The skin edges were reapproximated together and were hemostatic. A pressure dressing was applied. All sponge, lap and needle counts were correct at the end of the procedure per nursing. Vitals - Labs Vital Signs - I&O Vital Signs Date Time Temp Pulse Resp B/P (MAP) Pulse Ox O2 Delivery O2 Flow Rate FiO2 11/30/17 10:10 73 18 128/70 (89) Room Air Labs Laboratory Tests 11/30/17 13:32: White Blood Count 11.7H, Red Blood Count 4.39, Hemoglobin 13.3, Hematocrit 39, Mean Corpuscular Volume 88, Mean Corpuscular Hemoglobin 30, Mean Corpuscular Hemoglobin Concent 35, Red Cell Distribution Width 13.5, Platelet Count 206, Mean Platelet Volume 11.8H, Neutrophils (%) (Auto) 78H, Lymphocytes (%) (Auto) 16, Monocytes (%) (Auto) 6, Eosinophils (%) (Auto) 1, Basophils (%) (Auto) 0, Neutrophils # (Auto) 9.1H, Lymphocytes # (Auto) 1.9, Monocytes # (Auto) 0.7, Eosinophils # (Auto) 0.1, Basophils # (Auto) 0.0 CELIO ORTEGA DO Nov 30, 2017 15:57
[2017-11-30 17:39] VITALS: BP 102/74
[2017-11-30] MEDS: KETOROLAC 30 MG/ML VIAL IVP SCH ×2 (17:41→21:05)
[2017-11-30] MEDS: HYDROmorphone 1 MG/ML (DILAUDID) 1 ML SYRINGE IV PRN (17:52)
[2017-11-30 19:22] VITALS: BP 109/72
[2017-11-30] MEDS: HYDROcodone/APAP 5 MG/325 MG (LORTAB) TAB PO PRN (19:22)
[2017-12-01 00:05] VITALS: BP 91/65
[2017-12-01] MEDS: HYDROcodone/APAP 5 MG/325 MG (LORTAB) TAB PO PRN ×3 (01:04→15:08)
[2017-12-01] MEDS: HYDROmorphone 1 MG/ML (DILAUDID) 1 ML SYRINGE IV PRN (01:25)
[2017-12-01 03:14] VITALS: BP 96/49
[2017-12-01] MEDS: KETOROLAC 30 MG/ML VIAL IVP SCH ×2 (03:14→09:45)
[2017-12-01 06:12] LABS: BASOPHILS % (AUTO) 0 % (0-10); EOSINOPHILS # (AUTO) 0.1 10^3/uL (0.0-0.3); EOSINOPHILS % (AUTO) 0 % (0-10); HEMATOCRIT 34 % (35-52); HEMOGLOBIN 11.7 G/DL (11.5-16.0); LYMPHOCYTES # (AUTO) 1.9 X 10^3 (1.0-4.0); LYMPHOCYTES % (AUTO) 17 % (12-44); MEAN CORPUSCULAR HEMOGLOBIN 31 PG (25-34); MEAN CORPUSCULAR HGB CONC 35 G/DL (32-36); MEAN CORPUSCULAR VOLUME 89 FL (80-99); MEAN PLATELET VOLUME 11.7 FL (7.4-10.4); MONOCYTES # (AUTO) 0.8 X 10^3 (0.0-1.0); MONOCYTES % (AUTO) 7 % (0-12); NEUTROPHILS # (AUTO) 8.7 X 10^3 (1.8-7.8); NEUTROPHILS % (AUTO) 76 % (42-75); PLATELET COUNT 188 10^3/uL (130-400); RED CELL DISTRIBUTION WIDTH 13.3 % (10.0-14.5); WHITE BLOOD COUNT 11.5 10^3/uL (4.3-11.0)
[2017-12-01] MEDS ORDERED: IBUPROFEN 600 MG (MOTRIN) TAB PO ONE (08:10)
[2017-12-01 08:30] VITALS: BP 106/57
[2017-12-01] MEDS: DOCUSATE SODIUM 100 MG (COLACE) CAP PO SCH ×2 (08:45→21:18)
[2017-12-01] MEDS: IBUPROFEN 600 MG (MOTRIN) TAB PO SCH ×3 (08:46→21:18)
--- NOTE | 2017-12-01 10:42 | Postpartum Progress Note ---
Post Op Post-operative Day #1 s/p RLTCS, 37 weeks Subjective: Patient is without complaints. Ambulating, voiding after vitale removed. Tolerating a regular diet without nausea or vomiting. Normal lochia. Pain is well controlled with oral pain medications. Passing flatus. breast feeding. Objective: Laboratory Tests Test 11/30/17 13:32 12/01/17 05:48 Range/Units White Blood Count 11.7 H 11.5 H 4.3-11.0 10^3/uL Red Blood Count 4.39 3.80 L 4.35-5.85 10^6/uL Hemoglobin 13.3 11.7 11.5-16.0 G/DL Hematocrit 39 34 L 35-52 % Mean Corpuscular Volume 88 89 80-99 FL Mean Corpuscular Hemoglobin 30 31 25-34 PG Mean Corpuscular Hemoglobin Concent 35 35 32-36 G/DL Red Cell Distribution Width 13.5 13.3 10.0-14.5 % Platelet Count 206 188 130-400 10^3/uL Mean Platelet Volume 11.8 H 11.7 H 7.4-10.4 FL Neutrophils (%) (Auto) 78 H 76 H 42-75 % Lymphocytes (%) (Auto) 16 17 12-44 % Monocytes (%) (Auto) 6 7 0-12 % Eosinophils (%) (Auto) 1 0 0-10 % Basophils (%) (Auto) 0 0 0-10 % Neutrophils # (Auto) 9.1 H 8.7 H 1.8-7.8 X 10^3 Lymphocytes # (Auto) 1.9 1.9 1.0-4.0 X 10^3 Monocytes # (Auto) 0.7 0.8 0.0-1.0 X 10^3 Eosinophils # (Auto) 0.1 0.1 0.0-0.3 10^3/uL Basophils # (Auto) 0.0 0.0 0.0-0.1 10^3/uL 12/01/17 12/01/17 12/01/17 00:05 03:14 08:30 Temp 97.7 97.8 97.8 Pulse 67 65 70 Resp 18 18 18 B/P (MAP) 91/65 (74) 96/49 (65) 106/57 (73) Pulse Ox 98 97 98 O2 Delivery Room Air Room Air Room Air 6/8/18 00:00 Intake Total 1102 ml Output Total 900 ml Balance 202 ml Physical Exam: General - Alert and oriented, no apparent distress Abdomen - Soft, appropriately tender to palpation, non-distended, fundus firm at umbilicus Incision - clean, dry and intact; no erythema or induration, no drainage Extremities - no edema, negative Cristy's bilaterally Assessment: 1. post-operative day # 1, status post RLTCS. Recovering well, hemodynamically stable Plan: Routine post-operative care. Encourage breast feeding. Encourage ambulation. VTE prophylaxis: SCDs. Ferrous sulfate supplementation. Plan for discharge tomorrow Vitals - Labs Vital Signs - I&O Vital Signs Date Time Temp Pulse Resp B/P (MAP) Pulse Ox O2 Delivery O2 Flow Rate FiO2 12/01/17 08:30 97.8 70 18 106/57 (73) 98 Room Air 12/01/17 03:14 97.8 65 18 96/49 (65) 97 Room Air 12/01/17 00:05 97.7 67 18 91/65 (74) 98 Room Air 11/30/17 19:22 98.3 69 18 109/72 (84) 97 Room Air 11/30/17 17:39 98.0 73 18 102/74 (83) 99 Room Air I & O 12/01/17 07:00 Intake Total 2402 ml Output Total 4200 ml Balance -1798 ml Labs Laboratory Tests 11/30/17 13:32: White Blood Count 11.7H, Red Blood Count 4.39, Hemoglobin 13.3, Hematocrit 39, Mean Corpuscular Volume 88, Mean Corpuscular Hemoglobin 30, Mean Corpuscular Hemoglobin Concent 35, Red Cell Distribution Width 13.5, Platelet Count 206, Mean Platelet Volume 11.8H, Neutrophils (%) (Auto) 78H, Lymphocytes (%) (Auto) 16, Monocytes (%) (Auto) 6, Eosinophils (%) (Auto) 1, Basophils (%) (Auto) 0, Neutrophils # (Auto) 9.1H, Lymphocytes # (Auto) 1.9, Monocytes # (Auto) 0.7, Eosinophils # (Auto) 0.1, Basophils # (Auto) 0.0 12/01/17 05:48: White Blood Count 11.5H, Red Blood Count 3.80L, Hemoglobin 11.7, Hematocrit 34L , Mean Corpuscular Volume 89, Mean Corpuscular Hemoglobin 31, Mean Corpuscular Hemoglobin Concent 35, Red Cell Distribution Width 13.3, Platelet Count 188, Mean Platelet Volume 11.7H, Neutrophils (%) (Auto) 76H, Lymphocytes (%) (Auto) 17, Monocytes (%) (Auto) 7, Eosinophils (%) (Auto) 0, Basophils (%) (Auto) 0, Neutrophils # (Auto) 8.7H, Lymphocytes # (Auto) 1.9, Monocytes # (Auto) 0.8, Eosinophils # (Auto) 0.1, Basophils # (Auto) 0.0 CELIO ORTEGA DO Dec 01, 2017 10:42
[2017-12-01] MEDS ORDERED: DOCU100C37 PO (10:44)
[2017-12-01] MEDS ORDERED: ACHD5005 PO (10:44)
[2017-12-01] MEDS ORDERED: IBUP-844 PO (10:44)
--- NOTE | 2017-12-01 10:46 | Discharge Inst-Women's Service ---
Discharge Inst-Women's Serv Depart Medication/Instructions New, Converted or Re-Newed RX: RX on Chart Final Diagnosis previous section Labor vaginal bleeding (spotting) 37 week deceleration Repeat section Consults/Follow Up Additional Follow Up: Yes ([address] Hutton/Constanza for incision check; 6 week pp exam with Dr. Cox) Activity Activity: Activity as Tolerated Driving Instructions: No Driving for 1 Week NO SMOKING: NO SMOKING Nothing Inside Vagina: No Douching, No Fairgarden, No Tampons Diet Discharge Diet: No Restrictions Symptoms to Report to : Swelling Increased, Bleeding Excessive, Pain Increased, Fever Over 101 Degrees F, Vaginal Bleeding Increase, Cramps in Feet or Legs, Vaginal Discharge Foul For Any Problems or Questions: Contact Your Physician Skin/Wound Care Infection Signs and Symptoms: Increased Redness, Foul Odor of Wound, Increased Drainage, Skin Itchy or Has a Rash, Increased Swelling, Temperature Above 101 F Operative Area Clean and Dry: Keep Incision Clean/Dry Stitches/Palma/Dermabond: Dermabond Bathing Instructions: CELIO Leonard DO Dec 01, 2017 10:46
[2017-12-01 12:00] VITALS: BP 103/64
--- NOTE | 2017-12-01 13:28 | Anesthesia-Regional Post-Op ---
Regional Patient Condition Mental Status: Alert, Oriented x3 Circulation: Same as Pre-Op Headache: Absent Sensation: Full Recovery Motor Block: Absent Post Op Complications Complications None Follow Up Care/Instructions Patient Instructions None needed. Anesthesia/Patient Condition Patient is doing well, no complaints, stable vital signs, no apparent adverse anesthesia problems. No complications reported per nursing. D/C home per [facility] Criteria: Yes NUZHAT TEAGUE CRNA Dec 01, 2017 13:28
[2017-12-01 17:00] VITALS: BP 103/57
[2017-12-01 23:15] VITALS: BP 99/65
[2017-12-02] MEDS: HYDROcodone/APAP 5 MG/325 MG (LORTAB) TAB PO PRN ×3 (03:09→19:51)
[2017-12-02] MEDS: IBUPROFEN 600 MG (MOTRIN) TAB PO SCH ×3 (03:09→19:51)
[2017-12-02 05:20] VITALS: BP 104/66
[2017-12-02 09:20] VITALS: BP 101/59
[2017-12-02] MEDS: DOCUSATE SODIUM 100 MG (COLACE) CAP PO SCH ×2 (09:30→19:51)
--- NOTE | 2017-12-02 10:18 | Postpartum Progress Note ---
Post Op Post-operative Day #2 s/p RLTCS, some oozing of the incision. Still with some pain. Hasn't ambulated much due to pain Subjective: Patient is without complaints. Ambulating minimally. Tolerating a regular diet without nausea or vomiting. Normal lochia. Pain is moderately controlled with oral pain medications. Passing flatus. breast feeding. [] Objective: 12/01/17 12/02/17 23:15 05:20 Temp 98.9 98.5 Pulse 71 68 Resp 18 16 B/P (MAP) 99/65 (76) 104/66 (79) Pulse Ox 97 98 O2 Delivery Room Air Room Air 12/02/17 00:00 Intake Total 4200 ml Output Total 4400 ml Balance -200 ml Physical Exam: General - Alert and oriented, no apparent distress Abdomen - Soft, appropriately tender to palpation, non-distended, fundus firm at umbilicus Incision - clean, dry and intact; no erythema or induration, no drainage Extremities - no edema, negative Cristy's bilaterally [] Assessment: [] post-operative day # [], status post []. Recovering well, hemodynamically stable Acute blood loss anemia [] Plan: Routine post-operative care. Encourage breast feeding. Encourage ambulation. VTE prophylaxis: SCDs. Ferrous sulfate supplementation. Plan for discharge [] Vitals - Labs Vital Signs - I&O Vital Signs Date Time Temp Pulse Resp B/P (MAP) Pulse Ox O2 Delivery O2 Flow Rate FiO2 12/02/17 05:20 98.5 68 16 104/66 (79) 98 Room Air 12/01/17 23:15 98.9 71 18 99/65 (76) 97 Room Air 12/01/17 17:00 98.9 78 18 103/57 (72) 98 Room Air 12/01/17 12:00 98.1 74 18 103/64 (77) 99 Room Air I & O 12/02/17 07:00 Intake Total 4900 ml Output Total 5900 ml Balance -1000 ml CELIO ORTEGA DO Dec 02, 2017 10:18
[2017-12-02] MEDS: PRENATAL VITAMIN 1 EA TAB PO SCH (10:23)
[2017-12-02 13:10] VITALS: BP 109/58
[2017-12-02 19:50] VITALS: BP 109/63
[2017-12-03 01:00] VITALS: BP 96/59
[2017-12-03] MEDS: IBUPROFEN 600 MG (MOTRIN) TAB PO SCH ×2 (01:13→07:44)
[2017-12-03] MEDS: HYDROcodone/APAP 5 MG/325 MG (LORTAB) TAB PO PRN ×2 (01:14→07:43)
[2017-12-03 07:44] VITALS: BP 109/67
[2017-12-03] MEDS: PRENATAL VITAMIN 1 EA TAB PO SCH (07:44)
== END 2017-12-03 12:00 | disposition home or self-care (01) | DRG 765 ==
LOC: LDRP 10:02 → WSo 10:02 → LDRP 13:17 → WSo 13:17 → LDRP 17:03
PROVIDERS: ADMIT Obstetrics & Gynecology; ATTEND Obstetrics & Gynecology
PROC: 10D00Z1 Extraction of Products of Conception, Low, Open Approach (ICD-10-PCS; principal; 2017-11-30 15:08)
DX: O26.853 Spotting complicating pregnancy, third trimester (principal); D62 Acute posthemorrhagic anemia; O90.81 Anemia of the puerperium; O34.211 Maternal care for low transverse scar from previous cesarean delivery; Z37.0 Single live birth; Z3A.37 37 weeks gestation of pregnancy
CPT/HCPCS: 36415; 85025; 86850; 86900; 86901; 94664; 99212

== ENCOUNTER 2019-03-24 19:25 | Emergency (ER) | payer SELFPAY ==
[~2019-03-24] VITALS: Ht 170 cm; Wt 65.0 kg
[~2019-03-24 19:25] MED LIST: ACHD5005 PO; DOCU100C37 PO; IBUP-844 PO; PREN-37 PO
[2019-03-24] MEDS ORDERED: LACTATED RINGERS 1,000 ML IV ONE (19:58)
[2019-03-24] MEDS ORDERED: KETOROLAC 30 MG/ML VIAL IVP ONE (20:00)
[2019-03-24 20:06] LABS: BASOPHILS % (AUTO) 0 % (0-10); BILIRUBIN,URINE NEGATIVE (NEGATIVE); CLARITY,URINE CLEAR; COLOR,URINE YELLOW; EOSINOPHILS # (AUTO) 0.1 10^3/uL (0.0-0.3); EOSINOPHILS % (AUTO) 1 % (0-10); GLUCOSE, URINE (UA) NEGATIVE (NEGATIVE); HEMATOCRIT 40 % (35-52); HEMOGLOBIN 13.2 G/DL (11.5-16.0); KETONES,URINE NEGATIVE (NEGATIVE); LEUKOCYTE ESTERASE ,URINE 1+ (NEGATIVE); LYMPHOCYTES # (AUTO) 2.2 X 10^3 (1.0-4.0); LYMPHOCYTES % (AUTO) 27 % (12-44); MEAN CORPUSCULAR HEMOGLOBIN 30 PG (25-34); MEAN CORPUSCULAR HGB CONC 33 G/DL (32-36); MEAN CORPUSCULAR VOLUME 91 FL (80-99); MONOCYTES # (AUTO) 0.6 X 10^3 (0.0-1.0); MONOCYTES % (AUTO) 8 % (0-12); NEUTROPHILS # (AUTO) 5.1 X 10^3 (1.8-7.8); NEUTROPHILS % (AUTO) 64 % (42-75); NITRITE,URINE NEGATIVE (NEGATIVE); PH,URINE 6 (5-9); PLATELET COUNT 221 10^3/uL (130-400); PROTEIN,URINE NEGATIVE (NEGATIVE); RED CELL DISTRIBUTION WIDTH 12.3 % (10.0-14.5); UROBILINOGEN,URINE NORMAL (NORMAL); WHITE BLOOD COUNT 7.9 10^3/uL (4.3-11.0)
[2019-03-24] MEDS ORDERED: ONDANSETRON 4 MG/2 ML (SDV) Z0FRAN ONE (20:08)
[2019-03-24 20:15] LABS: BACTERIA,URINE FEW /HPF; WBC,URINE 0-2 /HPF
[2019-03-24] MEDS ORDERED: ONDANSETRON 4 MG/2 ML (SDV) Z0FRAN IVP ONE (20:15)
[2019-03-24 20:16] LABS: SQUAMOUS EPITHELIAL CELL,UR 25-50 /HPF
[2019-03-24 20:22] LABS: ALANINE AMINOTRANSFERASE 41 U/L (0-55); ALBUMIN 4.7 GM/DL (3.2-4.5); ALKALINE PHOSPHATASE 70 U/L (40-136); BILIRUBIN,TOTAL 0.3 MG/DL (0.1-1.0); BUN/CREATININE RATIO 17; CALCIUM 9.4 MG/DL (8.5-10.1); CARBON DIOXIDE 26 MMOL/L (21-32); CHLORIDE 104 MMOL/L (98-107); CREATININE SERUM 0.69 MG/DL (0.60-1.30); GFR ESTIMATED > 60; GLUCOSE 97 MG/DL (70-105); POTASSIUM 3.6 MMOL/L (3.6-5.0); SODIUM 138 MMOL/L (135-145); TOTAL PROTEIN 7.4 GM/DL (6.4-8.2)
[2019-03-24] MEDS ORDERED: fentaNYL INJECTION 100 MCG/2 ML AMP IVP ONE (20:30)
--- NOTE | 2019-03-24 20:36 | ED Abdominal Pain ---
General Chief Complaint: Abdominal/GI Problems Stated Complaint: BILAT KIDNEY PAIN Source of Information: Patient, Family Exam Limitations: No Limitations History of Present Illness Date Seen by Provider: Mar 24, 2019 Time Seen by Provider: 20:00 Initial Comments The patient presents to ER by private conveyance with chief complaint of back pain at the level of the kidneys radiating around to her low pelvis. She says it started Monday, 2 days ago when she went up to cancel it if her mother move. She denies actually lifting or moving anything at that time. She's not had anything strenuous to her back. She has a history of frequent UTIs and thought maybe this was the case was not having dysuria or discharge. She is not in a monogamous relationship. She first came in and doesn't history of illness and chlamydia years ago that were successfully treated. She's having no fevers or chills. She has nausea and her mom gave her some ondansetron which helped. She says that the pain is quite excruciating but she has not taken anything for it. She did end up having some nausea and vomiting for the nurse when he brought her back. She has an IUD in place. Her last missed her period was 2 weeks ago. Her pain is not any worse one side compared to the other. She had an appendectomy and 2 C-sections. She's had loose stools all day yesterday and today. Allergies and Home Medications Allergies Coded Allergies: hydrocodone (Verified Adverse Reaction, Intermediate, 03/24/19) Home Medications Docusate Sodium 100 Mg Capsule, 100 MG PO BID Prescribed by: CELIO ORTEGA on 12/01/17 1044 Doxycycline Hyclate 100 Mg Tablet, 100 MG PO BID Prescribed by: LANDON FLOREZ on 03/24/19 221 Hydrocodone Bit/Acetaminophen 1 Tab Tab, 1-2 TAB PO Q4H PRN for PAIN-MODERATE Prescribed by: CELIO ORTEGA on 12/01/17 104 Ibuprofen 600 Mg Tablet, 600 MG PO Q6H Prescribed by: CELIO ORTEGA on 12/01/17 104 Ondansetron 4 Mg Tab.rapdis, 4 MG PO Q6H PRN for NAUSEA/VOMITING Prescribed by: LANDON FLOREZ on 03/24/19 221 Oxycodone HCl/Acetaminophen 1 Each Tablet, 1 EACH PO Q4H PRN for PAIN-MODERATE Prescribed by: LANDON FLOREZ on 03/24/198 Vit/Iron Fumarate/FA 1 Each Tablet, 1 EACH PO DAILY, (Reported) Patient Home Medication List Home Medication List Reviewed: Yes Review of Systems Review of Systems Constitutional: No chills, No fever, No malaise EENTM: No Blurred Vision, No Double Vision Respiratory: Denies Cough, Denies Shortness of Air Cardiovascular: Denies Chest Pain, Denies Lightheadedness Gastrointestinal: See HPI, Abdominal Pain; Denies Constipated; Diarrhea, Nausea, Vomiting Genitourinary: Denies Burning, Denies Discharge, Denies Drainage, Denies Flank Pain Musculoskeletal: No back pain, No joint pain Past Rfuhqgn-Qkftrg-Isstke Hx Patient Social History Alcohol Use: Denies Use Recreational Drug Use: No Smoking Status: Current Everyday Smoker Type Used: Cigarettes Recent Foreign Travel: No Contact w/Someone Who Travel: No Recent Hopitalizations: No Immunizations Up To Date PED Vaccines UTD: Yes Seasonal Allergies Seasonal Allergies: No Past Medical History Surgeries: Yes (hx ) Appendectomy, Section, Orthopedic, Tonsillectomy Respiratory: No Cardiac: No Neurological: No Reproductive Disorders: No Genitourinary: No Gastrointestinal: No Musculoskeletal: No Endocrine: No HEENT: No Cancer: No Psychosocial: Yes Anxiety, Depression Integumentary: No Blood Disorders: No Adverse Reaction/Blood Tranf: No Family Medical History FH: celiac disease 19 MOTHER Ovarian cyst 19 MOTHER No Pertinent Family Hx Physical Exam Vital Signs Vital Signs - First Documented 03/24/19 19:35 Temp 37.0 Pulse 86 Resp 22 B/P (MAP) 139/91 (107) Pulse Ox 100 O2 Delivery Room Air Capillary Refill : Height/Weight/BMI Height: 5'4.00" Weight: 169lbs. 0.0oz. 76.479017sg; 29.0 BMI Method:Stated General Appearance: WD/WN, mild distress HEENT: PERRL/EOMI, pharynx normal Neck: non-tender, normal inspection Respiratory: lungs clear, normal breath sounds, no respiratory distress, no accessory muscle use Cardiovascular: normal peripheral pulses, regular rate, rhythm, no edema Gastrointestinal: normal bowel sounds, soft, no organomegaly, tenderness (bilateral lower quadrants), other (negative for mesenteric signs Sparrow sign or rebound tenderness over McBurney's point) Extremities: normal inspection, normal capillary refill Neurologic/Psychiatric: alert, normal mood/affect, oriented x 3 Progress/Results/Core Measures Results/Orders Lab Results Laboratory Tests Test 03/24/19 19:50 03/24/19 22:50 Range/Units White Blood Count 7.9 4.3-11.0 10^3/uL Red Blood Count 4.40 4.35-5.85 10^6/uL Hemoglobin 13.2 11.5-16.0 G/DL Hematocrit 40 35-52 % Mean Corpuscular Volume 91 80-99 FL Mean Corpuscular Hemoglobin 30 25-34 PG Mean Corpuscular Hemoglobin Concent 33 32-36 G/DL Red Cell Distribution Width 12.3 10.0-14.5 % Platelet Count 221 130-400 10^3/uL Mean Platelet Volume 11.0 H 7.4-10.4 FL Neutrophils (%) (Auto) 64 42-75 % Lymphocytes (%) (Auto) 27 12-44 % Monocytes (%) (Auto) 8 0-12 % Eosinophils (%) (Auto) 1 0-10 % Basophils (%) (Auto) 0 0-10 % Neutrophils # (Auto) 5.1 1.8-7.8 X 10^3 Lymphocytes # (Auto) 2.2 1.0-4.0 X 10^3 Monocytes # (Auto) 0.6 0.0-1.0 X 10^3 Eosinophils # (Auto) 0.1 0.0-0.3 10^3/uL Basophils # (Auto) 0.0 0.0-0.1 10^3/uL Urine Color YELLOW Urine Clarity CLEAR Urine pH 6 5-9 Urine Specific [place] 1.025 H 1.016-1.022 Urine Protein NEGATIVE NEGATIVE Urine Glucose (UA) NEGATIVE NEGATIVE Urine Ketones NEGATIVE NEGATIVE Urine Nitrite NEGATIVE NEGATIVE Urine Bilirubin NEGATIVE NEGATIVE Urine Urobilinogen NORMAL NORMAL MG/DL Urine Leukocyte Esterase 1+ H NEGATIVE Urine RBC (Auto) NEGATIVE NEGATIVE Urine RBC NONE /HPF Urine WBC 0-2 /HPF Urine Squamous Epithelial Cells 25-50 H /HPF Urine Crystals NONE /LPF Urine Bacteria FEW H /HPF Urine Casts NONE /LPF Urine Mucus NEGATIVE /LPF Urine Culture Indicated NO Sodium Level 138 135-145 MMOL/L Potassium Level 3.6 3.6-5.0 MMOL/L Chloride Level 104 98-107 MMOL/L Carbon Dioxide Level 26 21-32 MMOL/L Anion Gap 8 5-14 MMOL/L Blood Urea Nitrogen 12 7-18 MG/DL Creatinine 0.69 0.60-1.30 MG/DL Estimat Glomerular Filtration Rate > 60 BUN/Creatinine Ratio 17 Glucose Level 97 70-105 MG/DL Calcium Level 9.4 8.5-10.1 MG/DL Corrected Calcium 8.5-10.1 MG/DL Total Bilirubin 0.3 0.1-1.0 MG/DL Aspartate Amino Transf (AST/SGOT) 24 5-34 U/L Alanine Aminotransferase (ALT/SGPT) 41 0-55 U/L Alkaline Phosphatase 70 40-136 U/L Total Protein 7.4 6.4-8.2 GM/DL Albumin 4.7 H 3.2-4.5 GM/DL My Orders Orders - LANDON FLOREZ Ua Culture If Indicated (03/24/19 19:25) Urine Bedside (03/24/19 19:25) Ketorolac Injection (Toradol Injection) (03/24/19 20:00) Ed Iv/Invasive Line Start (03/24/19 19:58) Lactated Ringers (Lr 1000 Ml Iv Solution (03/24/19 19:58) Cbc With Automated Diff (03/24/19 19:58) Comprehensive Metabolic Panel (03/24/19 19:58) Ondansetron Injection (Zofran Injectio (03/24/19 20:08) Ondansetron Injection (Zofran Injectio (03/24/19 20:15) Fentanyl Injection (Sublimaze Injection (03/24/19 20:30) Ct Abdomen/Pelvis W (03/24/19 20:52) Iohexol Injection (Omnipaque 350 Mg/Ml 1 (03/24/19 21:00) Received Contrast (Hold Metformin- Contr (03/24/19 21:00) Sodium Chloride Flush (Catheter Flush Sy (03/24/19 21:00) Ns (Ivpb) (Sodium Chloride 0.9% Ivpb Bag (03/24/19 21:00) Doxycycline Hyclate Tablet (Vibramycin T (03/24/19 22:30) Ceftriaxone For Iv Use (Rocephin For I (03/24/19 22:30) Rx-Ondansetron Po (Rx-Zofran Po) (03/24/19 22:16) Rx-Hydrocodone/Apap 5-325 Mg (Rx-Vicodin (03/24/19 22:30) Hydrocodone/Apap 5/325 Tablet (Lortab 5 (03/24/19 22:30) Wet Prep (03/24/19 22:16) Neisseria Gonorrhea Swab (03/24/19 22:16) Chlamydia Trachomatis Swab (03/24/19 22:16) Rx-Oxycodone/Apap 5-325 Mg (Rx-Percocet (03/24/19 22:45) Medications Given in ED Current Medications Medications Dose Ordered Sig/[place] Route Start Time Stop Time Status Last Admin Dose Admin Ceftriaxone Sodium 1000 mg/ Sterile Water 10 ml @ 200 mls/hr ONCE ONCE IV 03/24/19 22:30 03/24/19 22:32 DC 03/24/19 22:44 200 MLS/HR Doxycycline Hyclate 100 mg ONCE ONCE PO 03/24/19 22:30 03/24/19 22:31 DC 03/24/19 22:36 100 MG Fentanyl Citrate 50 mcg ONCE ONCE IVP 03/24/19 20:30 03/24/19 20:32 DC 03/24/19 20:43 50 MCG Iohexol 100 ml ONCE ONCE IV 03/24/19 21:00 03/24/19 21:01 DC 03/24/19 21:15 83 ML Ketorolac Tromethamine 30 mg ONCE ONCE IVP 03/24/19 20:00 03/24/19 20:01 DC 03/24/19 20:11 30 MG Lactated Ringer's 1,000 ml @ 0 mls/hr Q0M ONCE IV 03/24/19 19:58 03/24/19 20:00 DC 03/24/19 20:11 1,000 MLS/HR Ondansetron HCl 8 mg ONCE ONCE IVP 03/24/19 20:15 03/24/19 20:16 DC 03/24/19 20:08 8 MG Sodium Chloride 10 ml NEEDED PRN IV 03/24/19 21:00 03/24/19 21:15 10 ML Sodium Chloride 100 ml ONCE ONCE IV 03/24/19 21:00 03/24/19 21:01 DC 03/24/19 21:15 80 ML Vital Signs/I&O 03/24/19 19:35 Temp 37.0 Pulse 86 Resp 22 B/P (MAP) 139/91 (107) Pulse Ox 100 O2 Delivery Room Air Progress Progress Note #1: Time: 20:38 Progress Note The patient was given 8 mg Zofran after she was retching and that stopped her nausea. She was also given Toradol which has done nothing for her pain so we've ordered that he micrograms of fentanyl. Her labs are unremarkable. Suspect with her diarrhea and nausea and excruciating pain that could have gastroenteritis, gastritis, pelvic inflammatory disease, mittelschmerz, other? Liter of lactated Ringer. Progress Note #2: Time: 22:[address] is unremarkable. Suspect possible pelvic inflammatory disease we'll give her Rocephin, doxycycline by mouth and outpatient follow-up. We'll obtain a wet prep and GC chlamydia by vaginal swab. Diagnostic Imaging Diagonstic Imaging: CT (with IV contrast) Plain Films/CT/US/NM/MRI: abdomen, pelvis Comments NAME: BREANN SANCHEZ [facility] REC#: [id number] PT STATUS: REG ER : 1990 PHYSICIAN: LANDON FLOREZ MD ADMIT DATE: 03/24/19/ER Draft Date of Exam:03/24/19 CT ABDOMEN/PELVIS W Procedure: CT abdomen/pelvis w/contrast. TECHNIQUE: Multiple contiguous axial images were obtained through the abdomen and pelvis after administration of intravenous contrast. All CT scans use one or more of the following dose optimizing techniques: automated exposure control, MA and/or KvP adjustment based on a patient size and exam type, or iterative reconstruction. INDICATION: Back pain and diarrhea COMPARISON: None available. FINDINGS: Lower chest: The lung bases are clear. No pericardial or pleural effusion. Peritoneum: No free intraperitoneal air or fluid. Liver and biliary system: The liver is normal. The gallbladder is normal. No biliary duct dilation. Spleen and Pancreas: Spleen is normal. The pancreas enhances normally without mass lesion or peripancreatic inflammatory changes. Adrenals: Normal. tract: The kidneys enhance normally without suspicious mass or obstruction. No renal or ureteral stones. Urinary bladder is distended without wall thickening. Retroverted uterus has an IUD in appropriate position. Ovaries are normal in appearance. GI tract: Stomach is decompressed. No bowel obstruction. No pericolonic inflammatory changes. Appendectomy. Vasculature and Lymph nodes: Normal caliber aorta. No abdominal or pelvic lymphadenopathy. Musculoskeletal: No concerning osseous lesion. IMPRESSION: 1. No acute obstructive or inflammatory process in the abdomen and pelvis. 2. No urinary tract calculi. 3. Well-positioned IUD. 4. Appendectomy. Dictated on workstation # [id number] Dict: 03/24/192115 Trans: 03/24/192120 [facility] [id number] Interpreted by: SHIRA CARBAJAL MD Electronically signed by: Reviewed: Reviewed by Me Departure Impression Primary Impression: PID (acute pelvic inflammatory disease) Disposition: 01 HOME, SELF-CARE Condition: Improved Departure-Patient Inst. Decision time for Depature: 22:09 Referrals: DAVID GUIDO MD (PCP/Family) Primary Care Physician Patient Instructions: Pelvic Inflammatory Disease (DC) Add. Discharge Instructions: Doxycycline one capsule twice daily with food for the next week. Follow-up primary care for continued management of your symptoms. Hydrocodone one tablet every 6 hours for breakthrough pain. Ibuprofen 800 mg every 8 hours and or Tylenol 650 mg every 8 hours as needed for pain. Heating pads can be helpful. Zofran 1 tablet every 6 hours as needed for nausea or vomiting. All discharge instructions reviewed with patient and/or family. Voiced understanding. Scripts Oxycodone HCl/Acetaminophen (Oxycodone-Acetaminophen 5-325) 1 Each Tablet 1 EACH PO Q4H PRN for PAIN-MODERATE MDD 6 for 3 Days, #12 TAB 0 Refills Prov: LANDON FLOREZ 03/24/19 Ondansetron (Ondansetron Odt) 4 Mg Tab.rapdis 4 MG PO Q6H PRN for NAUSEA/VOMITING, #8 TAB 0 Refills Prov: LANDON FLOREZ 03/24/19 Doxycycline Hyclate (Doxycycline Hyclate) 100 Mg Tablet 100 MG PO BID for 7 Days, #13 TAB 0 Refills Prov: LANDON FLOREZ 03/24/19 Work/School Note: Work Release Form Date Seen in the Emergency Department: Mar 24, 2019 Return to Work: Mar 26, 2019 Restrictions: No Restrictions LANDON FLOREZ Mar 24, 2019 20:36
[2019-03-24] MEDS ORDERED: CATHETER FLUSH 10 ML SYR IV PRN (21:00)
[2019-03-24] MEDS ORDERED: HOLD METFORMIN - RECEIVED CONTRAST 20 ML VIAL IV SCH (21:00)
[2019-03-24] MEDS ORDERED: IOHEXOL 350 MG/ML 100 ML (OMNIPAQUE 350) VIAL IV ONE (21:00)
[2019-03-24] MEDS ORDERED: NS 100 ML (IVPB) BAG IV ONE (21:00)
--- NOTE | 2019-03-24 21:21 | Diagnostic Imaging Report ---
Procedure: CT abdomen/pelvis w/contrast. TECHNIQUE: Multiple contiguous axial images were obtained through the abdomen and pelvis after administration of intravenous contrast. All CT scans use one or more of the following dose optimizing techniques: automated exposure control, MA and/or KvP adjustment based on a patient size and exam type, or iterative reconstruction. INDICATION: Back pain and diarrhea COMPARISON: None available. FINDINGS: Lower chest: The lung bases are clear. No pericardial or pleural effusion. Peritoneum: No free intraperitoneal air or fluid. Liver and biliary system: The liver is normal. The gallbladder is normal. No biliary duct dilation. Spleen and Pancreas: Spleen is normal. The pancreas enhances normally without mass lesion or peripancreatic inflammatory changes. Adrenals: Normal. tract: The kidneys enhance normally without suspicious mass or obstruction. No renal or ureteral stones. Urinary bladder is distended without wall thickening. Retroverted uterus has an IUD in appropriate position. Ovaries are normal in appearance. GI tract: Stomach is decompressed. No bowel obstruction. No pericolonic inflammatory changes. Appendectomy. Vasculature and Lymph nodes: Normal caliber aorta. No abdominal or pelvic lymphadenopathy. Musculoskeletal: No concerning osseous lesion. IMPRESSION: 1. No acute obstructive or inflammatory process in the abdomen and pelvis. 2. No urinary tract calculi. 3. Well-positioned IUD. 4. Appendectomy. Dictated by: Dictated on workstation # [id number]
[2019-03-24] MEDS ORDERED: ACHD5005 PO (22:16)
[2019-03-24] MEDS ORDERED: ONDA4TAB11 PO (22:16)
[2019-03-24] MEDS ORDERED: DOXY100T2 PO (22:16)
[2019-03-24] MEDS ORDERED: RX-ONDANSETRON 4 MG ODT (ZOFRAN) PPK #4 PO STA (22:16)
[2019-03-24] MEDS ORDERED: cefTRIAXone FOR IV USE 1,000 MG in WATER (STERILE) FOR INJECTION 10 ML IV ONE (22:30)
[2019-03-24] MEDS ORDERED: HYDROcodone/APAP 5 MG/325 MG (LORTAB) TAB PO ONE (22:30)
[2019-03-24] MEDS ORDERED: DOXYCYCLINE 100 MG (VIBRAMYCIN) TABLET PO ONE (22:30)
[2019-03-24] MEDS ORDERED: RX-HYDROCODONE/APAP 5/325 MG #4 TAB PK PO PRN (22:30)
[2019-03-24] MEDS ORDERED: OXYC-471 PO (22:38)
[2019-03-24] MEDS ORDERED: RX-OXYCODONE/APAP 5-325 MG #4 TAB PK PO PRN (22:45)
--- NOTE | 2019-03-24 22:50 | NUR ---
Per pt request, this RN obtained vaginal wet prep, gc and chlamydia swap. Healthy vaginal anatomy with no external abnormalities noted.
[2019-03-24 23:23] VITALS: BP 110/61
== END 2019-03-24 23:24 | disposition home or self-care (01) ==
LOC: EDUNIT# 19:25 → ER 19:26
DX: N73.0 Acute parametritis and pelvic cellulitis (principal); F41.9 Anxiety disorder, unspecified; F32.9 Major depressive disorder, single episode, unspecified; F17.210 Nicotine dependence, cigarettes, uncomplicated; Z90.49 Acquired absence of other specified parts of digestive tract; Z90.89 Acquired absence of other organs; Z88.5 Allergy status to narcotic agent
CPT/HCPCS: 36415; 74177; 80053; 81000; 84703; 85025; 87210; 87491; 87591; 96361; 96374; 96375

== ENCOUNTER → 2020-10-02 | Outpatient (CLI) | payer BC ==
[~2020-10-02] MED LIST changes: +DOXY100T2 PO; +ONDA4TAB11 PO; +OXYC1TAB11 PO
--- NOTE | 2020-10-02 08:33 | Diagnostic Imaging Report ---
EXAMINATION: CT head without contrast. TECHNIQUE: Multiple contiguous axial images were obtained through the brain without the use of intravenous contrast. All CT scans use one or more of the following dose optimizing techniques: automated exposure control, MA and/or KvP adjustment based on a patient size and exam type, or iterative reconstruction. HISTORY: Seizure 2 weeks ago. No prior history of seizure. COMPARISON: 10/01/2017. FINDINGS: No large acute territorial ischemia, mass, or hemorrhage. No midline shift or mass effect. The ventricles, cortical sulci, and basilar cisterns are patent and unremarkable. The orbits are normal. Retained secretions are seen throughout the right maxillary sinus. Mastoid air cells are clear. No soft tissue abnormality is seen. No osseus lesions or fractures are seen. IMPRESSION: 1. No large acute territorial ischemia, mass, or hemorrhage. 2. Retained secretions throughout the right maxillary sinus, which may represent sinusitis. Dictated by: Dictated on workstation # [id number]
== END ==
LOC: RAD 08:15
PROVIDERS: ATTEND Family Medicine
DX: J34.89 Other specified disorders of nose and nasal sinuses (principal); R51.9 Headache, unspecified; R56.9 Unspecified convulsions; R00.2 Palpitations; R55 Syncope and collapse
CPT/HCPCS: 70450; 93225; 93226

== ENCOUNTER 2021-01-03 07:18 | Emergency (ER) | payer BC ==
[~2021-01-03] VITALS: Ht 162.5 cm; Wt 72.0 kg
[2021-01-03 07:20] VITALS: BP 136/79
--- NOTE | 2021-01-03 07:56 | ED Upper Extremity ---
General Chief Complaint: Upper Extremity Stated Complaint: R HAND SWOLLEN/PAIN Nursing Triage Note: PT CO OF R HAND SWELLING AND PAIN, STATES MAY HAVE HIT ON SOMETHING NOT SURE. STATES HAS DIFFICULTY CLOSING HAND Source: patient Exam Limitations: no limitations History of Present Illness Date Seen by Provider: Jan 03, 2021 Time Seen by Provider: 07:25 Initial Comments Here with right hand pain and swelling. Onset overnight. She states that yesterday evening she was helping one of her kids and thinks she hit it on something. It did not hurt significantly at that time. Overnight, it woke her up and she is having worse pain now. She has not taken anything for the pain. She was worried that it might be fractured. Does have some bruising along the first metacarpal of the right hand on the dorsum. Denies other injury. Denies being harmed at home. Onset: yesterday Severity: moderate Pain/Injury Location: right hand, right thumb Method of Injury: direct blow Modifying Factors: Improves With Immobilization; Worse With Movement Allergies and Home Medications Allergies Coded Allergies: hydrocodone (Verified Adverse Reaction, Intermediate, 03/24/19) Home Medications Docusate Sodium 100 Mg Capsule, 100 MG PO BID Prescribed by: CELIO ORTEGA on 12/01/17 1044 Doxycycline Hyclate 100 Mg Tablet, 100 MG PO BID Prescribed by: LANDON FLOREZ on 03/24/192215 Hydrocodone Bit/Acetaminophen 1 Tab Tab, 1-2 TAB PO Q4H PRN for PAIN-MODERATE Prescribed by: CELIO ORTEGA on 12/01/17 1044 Ibuprofen 600 Mg Tablet, 600 MG PO Q6H Prescribed by: CELIO ORTEGA on 12/01/17 1044 Ondansetron 4 Mg Tab.rapdis, 4 MG PO Q6H PRN for NAUSEA/VOMITING Prescribed by: LANDON FLOREZ on 03/24/19 221 Oxycodone HCl/Acetaminophen 1 Each Tablet, 1 EACH PO Q4H PRN for PAIN-MODERATE Prescribed by: LANDON FLOREZ on 03/24/19 223 Vit/Iron Fumarate/FA 1 Each Tablet, 1 EACH PO DAILY, (Reported) Patient Home Medication List Home Medication List Reviewed: Yes Review of Systems Constitutional: see HPI; No chills, No fever Respiratory: no symptoms reported Cardiovascular: no symptoms reported Musculoskeletal: joint pain, muscle pain Skin: change in color; No lesions Psychiatric/Neurological: Denies Numbness, Denies Paresthesia Past Gocdjmk-Qekmnq-Doxanx Hx Patient Social History Tobacco Use?: No Substance use?: No Alcohol Use?: No Pt feels they are or have been: No Immunizations Up To Date Tetanus Booster (TDap): Less than 5yrs PED Vaccines UTD: Yes Seasonal Allergies Seasonal Allergies: No Past Medical History Surgeries: Yes (hx ) Appendectomy, Section, Orthopedic, Tonsillectomy Respiratory: No Cardiac: No Neurological: No 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 0.0oz. 76.180606da; 27.00 BMI Method:Stated General Appearance: WD/WN, no apparent distress Cardiovascular: regular rate, rhythm, no murmur Respiratory: lungs clear, normal breath sounds Hand: Right, bone tenderness, limited ROM, soft tissue tenderness, stiffness, swelling (Bruising along the dorsum of the first metacarpal) Neurologic/Psychiatric: alert, oriented x 3 Skin: warm/dry, ecchymosis (Dorsum of the right hand along the first metacarpal.) Progress/Results/Core Measures Results/Orders My Orders Orders - ROJELIO SALINAS MD Hand, Right, 3 Views (01/03/21 07:33) Vital Signs/I&O 01/03/21 07:20 Temp 36.8 Pulse 69 Resp 20 B/P (MAP) 136/79 (98) Pulse Ox 100 Blood Pressure Mean: 98 Progress Progress Note : Progress Note Seen and evaluated. Ice pack given. X-ray right hand ordered. Monitor patient. 0805: No acute fractures. Patient reassured. Declines splint as she thinks she has 1 of those at home and will take ibuprofen at home. Discharged home with return precautions. Patient verbalized understanding instructions and agreement with plan. Diagnostic Imaging Diagonstic Imaging: Xray Plain Films/CT/US/NM/MRI: hand Comments No acute fractures Reviewed: Reviewed by Me Departure Impression Primary Impression: Contusion of right hand Qualified Codes: S60.221A - Contusion of right hand, initial encounter Disposition: HOME, SELF-CARE Condition: Improved Departure-Patient Inst. Decision time for Depature: 08:06 Referrals: XU ENGLAND DO (PCP/Family) Primary Care Physician Patient Instructions: Contusion (DC) Add. Discharge Instructions: All discharge instructions reviewed with patient and/or family. Voiced understanding. You may use ice packs to area of concern 20 minutes/h as needed. You may use splint as needed to reduce pain. You may take ibuprofen 600 mg every 8 hours as needed for pain. You may take Tylenol/acetaminophen 1000 mg every 8 hours as needed for pain. Return for worse pain, swelling, weakness, numbness or other concerns as needed. Follow-up with your doctor this week for recheck and further evaluation if not improving. ROJELIO SALINAS MD Jan 03, 2021 07:56
--- NOTE | 2021-01-03 08:09 | Diagnostic Imaging Report ---
EXAM: HAND, RIGHT, 3 VIEWS INDICATION: Hand pain. COMPARISON: None. FINDINGS: No fracture or malalignment. Soft tissue shadows are unremarkable. No radiopaque foreign bodies. IMPRESSION: Negative right hand radiographs. Dictated by: Dictated on workstation # [id number]
== END 2021-01-03 08:10 | disposition home or self-care (01) ==
LOC: EDUNIT# 07:18 → ER 07:20
DX: S60.221A Contusion of right hand, initial encounter (principal); W22.8XXA Striking against or struck by other objects, initial encounter
CPT/HCPCS: 73130

== ENCOUNTER → 2021-07-07 | Outpatient (CLI) | payer BC | LOC: LABNPT 07:50 | PROVIDERS: ATTEND Family Medicine | DX: J02.9 Acute pharyngitis, unspecified (principal); M79.10 Myalgia, unspecified site; Z20.822 Contact with and (suspected) exposure to COVID-19 | CPT/HCPCS: 87636 ==